=== PATIENT | male | born 1965 | race African-American/Black ===

== ENCOUNTER 2024-11-22 15:45 | Outpatient (AMB) | payer MEDICAID, SELFPAY ==
--- NOTE | 2024-11-22 15:52 | MHC.OFFVIS ---
Intake Visit Reasons: elevated PSA/Nocturia Intake Note: Patient is present for ELEVATED PSA/NOCTURIA Urology Medication:NONE Antibiotic Allergy:NONE Blood Thinner:NONE TODAY'S PVR: 0ML'S Training And Documentation Specialist Required: No Allergies No Known Allergies Allergy (Verified 11/22/24 15:53) HPI Comments Details: Bonilla is a pleasant Afro-Erick male (from [place]). He is a patient of . He is seen for the following urologic conditions - elevated PSA Elevated PSA No known family history of prostate issues Reports adequate voiding parameters regarding urge, emptying, strength of stream PSA - 09/29 PSA 8.3 13% free - PCPT 25% Prostate biopsy would be recommended Will complete evaluation with bladder ultrasound and repeat PSA [facility] Medical History (Updated 11/22/24 @ 16:14 by Cecil Downey MD) Abnormal prostate specific antigen (PSA) Urination, excessive at night Hyperthyroidism Elevated PSA Type 2 diabetes mellitus without complications Controlled type 2 diabetes mellitus Review of Systems Const Denies chills and Denies fever(s) Card Reports no additional complaints and Denies syncope Resp Denies cough GI Denies abdominal pain and Denies heartburn Reports as per HPI and Denies change in libido Neuro Denies syncope Psych Denies change in libido Endo Denies change in libido Physical Exam Const General: cooperative, healthy appearing, comfortable and no acute distress Orientation/consciousness: patient oriented x3 HEENT Face and sinus: Yes normal facial exam Mouth: moist mucous membranes Neck Neck: Yes normal visual inspection, Yes full ROM and Yes trachea midline Chest Chest palpation & inspection: normal inspection of the chest Resp Effort & Inspection: normal respiratory effort, able to speak in complete sentences and no respiratory distress GI Inspection: Yes normal to inspection Back/Spine/Pelvis Cervical Spine: normal cervical lordosis Thoracic/Lumbar Spine: thoracic and lumbar spine normal to inspection Skin General skin exam: no rashes or lesions noted Neuro General: patient oriented x3, gait normal, tone normal and moves all extremities Extrem General: Yes normal to inspection and Yes capillary refill normal Office Procedures Post Void Residual Post Residual Void Post Void Residual (PVR): 0 07450-[id number] Void Residual by ultrasound Results AMB Urinalysis, Automated UA Leukoctes 0 Teto/uL Last Edit by SUSAN Marx on 11/22/24 16:01 UA Nitrite Negative Last Edit by SUSAN Marx on 11/22/24 16:01 UA Urobilinogen 0.2 mg/dL Last Edit by SUSAN Marx on 11/22/24 16:01 UA Protein 15 mg/dL Last Edit by SUSAN Marx on 11/22/24 16:01 UA pH 6.0 Last Edit by SUSAN Marx on 11/22/24 16:01 UA Blood 25 Rakesh/uL Last Edit by SUSAN Marx on 11/22/24 16:01 UA Specific [place] 1.025 Last Edit by SUSAN Marx on 11/22/24 16:01 UA Ketone Positive Last Edit by SUSAN Marx on 11/22/24 16:01 UA Bilirubin 0 mg/dL Last Edit by SUSAN Marx on 11/22/24 16:01 UA Glucose 0 mg/dL Last Edit by SUSAN Marx on 11/22/24 16:01 Results Reviewed Results Reviewed: Laboratory Last Values Urine pH (Auto) 6.0 11/22/24 16:00 Specific [place] (Auto) 1.025 11/22/24 16:00 Urine Protein (Auto) 15 mg/dL 11/22/24 16:00 Glucose (UA)(Auto) 0 mg/dL 11/22/24 16:00 Urine Ketones (Auto) Positive 11/22/24 16:00 Urine Blood (Auto) 25 Rakesh/uL 11/22/24 16:00 Urine Nitrite (Auto) Negative 11/22/24 16:00 Urine Bilirubin (Auto) 0 mg/dL 11/22/24 16:00 Urine Urobilinogen (Auto) 0.2 mg/dL 11/22/24 16:00 Leukocyte Esterase (Auto) 0 Teto/uL 11/22/24 16:00 Assessment & Plan Assessment & Plan (1) Elevated PSA: Code(s): R97.20 - Elevated prostate specific antigen [PSA] Category: Medical Plan Bladder ultrasound Repeat PSA Orders: Orders AMB Urinalysis Automated Today Z13.9 - Encounter for screening, unspecified PSA,Total (Free>4and<10) Today R97.20 - Elevated prostate specific antigen [PSA] US bladder Today R39.12 - Poor urinary stream, R97.20 - Elevated prostate specific antigen [PSA] Patient Instructions: Imaging studies, laboratory and physical exam results were discussed and reviewed in detail. No major barriers to patient understanding were identified. An opportunity to ask questions regarding the treatment plan was provided. All questions were answered. The patient expressed understanding and agreement with the above treatment plan. The patient is aware they should contact our office by phone for worsening of their current condition or the appearance of new urologic symptoms. Compliance is encouraged with any medications and followup testing that is ordered. It is a privilege to participate in the urologic care of your patient. If you have any questions or concerns regarding treatment for the above conditions, or other urologic issues, please do not hesitate to contact me. The office telephone contact is [phone]. This note is constructed using voice recognition software. While every effort has been made to ensure accuracy transcription manager errors may have been included. Yours sincerely, Dr Cecil Downey MD, [facility] - Urology Providers of Expert, Compassionate Care for the Genitourinary System Coding Level of Care Code New Pt Level 4 (14695) Diagnoses Elevated PSA R97.20 CPT Codes Post Residual Void - PVR CPT Code: 51187-Gtrr Void Residual by ultrasound ([id number])
== END 2024-11-22 16:19 | disposition home or self-care (01) ==
PROVIDERS: PCP Physician Assistant Medical; Visit Provider Urology
DX: Z13.9 Encounter for screening, unspecified (principal); R97.20 Elevated prostate specific antigen [PSA]
CPT/HCPCS: 99204

== ENCOUNTER → 2024-11-22 15:45 | Outpatient (BNVA) | payer MEDICAID, SELFPAY | PROVIDERS: PCP Physician Assistant Medical; Visit Provider Urology | DX: R97.20 Elevated prostate specific antigen [PSA] (principal) | CPT/HCPCS: 51798; 81003; 99202 ==

== ENCOUNTER 2024-12-30 08:45 | Outpatient (REF) | payer MEDICAID, SELFPAY ==
--- OUTSIDE RECORDS SUMMARY | 2024-12-30 09:15 | XMS_ITS | Clinical Summary ---
Author Organization [facility] Address [address] [place] [address] Care Team Providers Care Litigation Secretary Name Role Phone Mateo Hartmann PA-C Primary Care Provider + [phone] Source Comments PLEASE NOTE, if this patient is a minor, it may be UNLAWFUL to discuss sensitive information that is contained in these records (such as FAMILY PLANNING, MENTAL HEALTH or SUBSTANCE ABUSE) with the minor patient's parent or other person without the patient's specific authorization.[facility] Allergies No known active allergies Medications loratadine (CLARITIN) 10 mg tabletIndicati ons:Seasonal allergies Take 1 Tab by mouth once daily as needed for allergies 30 Tab 2 0 Active fluticasone propionate (FLONASE) 50 mcg/actuation nasal sprayIndicatio ns:Seasonal allergies USE 2 SPRAYS IN EACH NOSTRIL TWICE A DAY 16 mL 1 0 Active blood-glucose meter monitoring kitIndications :New onset type 2 diabetes mellitus (HCC-CMS) as needed for blood glucose monitoring Freestyle meter, use to check BG daily 1 Each 2 Active metFORMIN (GLUCOPHAGE) 500 mg tabletIndicati ons:New onset type 2 diabetes mellitus (HCC-CMS) take 1 tablet by mouth twice daily with meals. 180 Tablet 1 4 Active atorvastatin (LIPITOR) 20 mg tabletIndicati ons:New onset type 2 diabetes mellitus (HCC-CMS) Take 1 Tablet by mouth once daily 90 Tablet 1 4 Active alcohol swabsIndicatio ns:New onset type 2 diabetes mellitus (HCC-CMS) Use to check blood sugar 100 Each 3 4 Active blood sugar diagnostic (FREESTYLE LITE STRIPS) stripsIndicati ons:New onset type 2 diabetes mellitus (HCC-CMS) Use to check blood sugar once daily 100 Each 3 4 Active lancets (FREESTYLE LANCETS) 28 gaugeIndicatio ns:New onset type 2 diabetes mellitus (HCC-CMS) Use to check blood sugar once daily 100 Each 3 4 Active dulaglutide (TRULICITY) 0.75 mg/0.5 mL pen injectorIndica tions:New onset type 2 diabetes mellitus (HCC-CMS) INJECT 0.75 MG SUBCUTANEOUSLY ONE TIME PER WEEK 2 mL 2 5 Active Active Problems Problem Noted Date Diagnosed Date New onset type 2 diabetes mellitus (HCC-CMS) Hyperthyroidism 02/02/2023 Seasonal allergies 11/19/2019 Screen for colon cancer 06/15/2017 Overview (08/03/2017): [facility] , 04/20/17: Internal and external hemorrhoids Colon otherwise normal to the terminal ileum Murmur, cardiac 06/08/2017 Chronic left shoulder pain 06/08/2017 Anemia 07/13/2016 Pain in limb 06/29/2015 Overview (06/29/2015): Rt hand, shoulder girdle vague pain after strenuous work. Relieved with prn Alleve. Prediabetes 06/11/2015 Overview (06/11/2015): A1c= 6.2(06/11/2015) Abnormal TSH 06/11/2015 Hemorrhoids 05/28/2015 Overview (04/28/2017): [facility] 03/28/27- Scheduled a colonoscopy. Must take liquid diet the day before procedure. Chronic constipation 05/28/2015 Encounters Date Type Department Care Team Description 11/19/2024 9:20 AM EST Office Visit [facility] [place] [address] Darya Pacheco RN Controlled type 2 diabetes mellitus without complication, without long-term current use of insulin ([facility]) (Primary Dx) 11/19/2024 Travel 10/14/2024 11:00 AM EST Office Visit [address] [address] Darya Pacheco RN Diabetic feet ([facility]) (Primary Dx) 10/14/2024 Travel 10/08/2024 Travel from Last 3 Months Immunizations Name Administration Dates Next Due INFLUENZA, SEASONAL, INJECTABLE 06/29/2015 Influenza (FLUBLOK),recombinant,injectable,preservati ve Free 07/23/2024 PFIZER COVID VACCINE, PURPLE CAP, 12+ 01/26/2022 ,04/07/2021,03/15/2021 PNEUMOCOCCAL CONJUGATE PCV 20 (Prevnar) 04/18/20 24 PNEUMOCOCCAL POLYSACCHARIDE PPV23 11/03/2022 Pfizer-BioNTCake Health COVID-19 Vac cine Bivalent, (FREEMAN PFIZER-BIONTECH COVID-19 VACCINE BIVALENT, (FREEMAN CAP 08/04/2022 TDAP 11/30/2018,05/05/2016 ZOSTER VACCINE, RECOMBINANT (SHINGRIX) ,05/05/2022 Family History Relation Name Status Comments Father Alive Mother Alive Social History Tobacco Use Types Packs/Day Years Used Date Smoking Tobacco: Never Smokeless Tobacco: Never Tobacco Cessation:Counseling Given: No Alcohol Use Standard Drinks/Week Comments Yes 0 (1 standard drink = 0.6 oz pur e alcohol) sometimes, occasion Social Connections Answer Date Recorded Connectedness 0 01/02/2023 Financial Resource Strain Answer Date R ecorded Financial Resource Strain 0 2022 Stress Answer Date Recorded Stress 0 01/02/2023 Physical Activity Answer Date Recorded Physical Activity 0 06/30/2019 Food Insecurity Answer Date Recorded Food 0 01/02/2023 Transportation Needs Answer Date Record ed Transportation 0 01/02/2023 Housing Stability Answer Date Recorded Housing 0 01/02/2023 Safety and Environment Answer Date Edward rded Safety 0 01/02/2023 Utilities Answer Date Recorded Utilities 0 01/02/2023 Employment Answer Date Recorded Stress 0 01/26/2022 Sex and Gender Information Value Date Recorded Sex Assigned at Male 04/17/2018 6:00 AM PDT Legal Sex Male 7:08 AM PDT Gender Identity Male 04/17/2018 6:00 AM PDT Sexual Orientation Straight 04/17/2018 6: 00 AM PDT Occupation Industry Job Start Date Job End Date 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 Not on file Not on file Not on file Last Filed Vital Signs Vital Sign Reading Time Taken Comments Blood Pressure 130/82 11/19/2024 9:40 AM EST Pulse 72 11/19/2024 9:40 AM EST Temperature 36.1 ??C (97 ??F) 07/23/2024 2:17 PM EDT Respiratory Rate 16 07/23/2024 2:17 PM EDT Oxygen Saturation 96% 07/23/2024 2:17 PM EDT Inhaled Oxygen Concentration - - Weight 83.5 kg (184 lb) 11/19/2024 9:40 AM EST Height 170.2 cm (5' 7 ) 07/23/2024 2:17 PM EDT Body Mass Index 28.82 07/23/2024 2:17 PM EDT Plan of Treatment Upcoming Encounters Date Type Department Care Team (Late st Contact Info) Description 01/07/2025 9:00 AM EST Office Visit [facility] [address] [place] [phone] Mateo Hartmann PA-C [address] [facility] [place] [address] 02/18/2025 9:20 AM EDT Office Visit [facility] [address] [place] [phone] Darya Pacheco RN [phone] [place] [address] Health Maintenance Due Date Last Done Comments Dental Examination 1965 Retinopathy Screening 01/07/1977 CT Colonography 01/07/2009 Colonoscopy 01/07/2009 Fecal DNA 01/07/2009 Flexible Sigmoidoscopy 01/07/2009 [id number] ( season) 2024 08/04/2022, 01/26/2022, 04/07/2021, Additional history exists Alcohol and Drug Screen 11/06/2024 04/18/20, 01/02/2023, 11/03/2022, Additional history exists Depression Annual Screen 11/06/2024 04/18/2024 Diabetes HbA1c 02/11/2025 08/13/2024, 04/06, 02/03/2023, Additional history exists Tobacco Screening 04/18/2025 04/18/2024 Diabetes Microalbumin (w/Creatinine) 04/22/2025 04/22/2024, 02/03/2023 Annual Preventive Care Visit 07/23/2025 07/23/2024, 02/02/2023, 01/26/2022, Additional history exists Lipid Screening 08/13/2025 08/13/2024, 04/06, 02/03/2023, Additional history exists Serum Creatinine 08/13/2025 08/13/2024, , 02/03/2023, Additional history exists Diabetes Foot Exam 10/14/2025 10/14/2024 Hypertension Screening (#1) 11/19/2025 Colorectal Cancer Screening 04/20/2027 FIT/gFOBT 04/20/2027 04/20/2017 (Karin casarez by Outside Provider), 11/02/2016 Imm-DTaP/Tdap/Td (3 - Td or Tdap) 11/30/2028 11/30/2018, 05/05/2016 HIV Screening Completed 11/30/2018 Hepatitis C Screening Completed 11/30/2018 Imm-Zoster, Recombinant Completed 08/04/2022, 05/05 Imm-Pneumococcal Completed 04/18/2024, 11/03/2022 Imm-Influenza Discontinued 07/23/2024, 06/29/2015 Imm-Hepatitis B Aged Out No longer el igible based on patient's age to complete this topic Procedures Procedure Name Priority Date/Time Associated Diagnosis Comments REFERRAL TO UROLOGY Routine 11/22/2024 3 :00 AM EST Nocturia Abnormal prostate specific antigen (PSA) COMPREHENSIVE METABOLIC PANEL Routine 08/13/2024 11:46 AM EDT New onset type 2 diabetes mellitus (HCC-CMS) LIPID PANEL Routine 08/13/2024 11:46 AM EDT New onset type 2 diabetes mellitus (HCC-CMS) HEMOGLOBIN GLYCOSYLATED A1C Routine 08/13/2024 11:46 AM EDT New onset type 2 diabetes mellitus (HCC-CMS) MICROALBUMIN/CREATININ E RATIO, URINE, RANDOM Routine 04/22/2024 8:38 AM EDT New onset type 2 diabetes mellitus (HCC-CMS) ANTIBODY HIV-1&HIV-2 SINGLE RESULT Routine 11/30/2018 9:30 AM EST Health care maintenance HEPATITIS C ANTIBODY Routine 11/30/2018 9:30 AM EST Health care maintenance OCCULT BLOOD, STOOL (DIAGNOSTIC) Routine 11/02/2016 11:32 AM EST Screening for colon cancer from Last 3 Months or Most Recently Relevant to Health Maintenance Results * REFERRAL TO UROLOGY (11/22/2024 3:00 AM EST) 11/22/2024 3:00 AM EST Mateo Hartmann PA-C REFERRAL Final Result * (ABNORMAL) HEMOGLOBIN GLYCOSYLATED A1C (08/13/2024 11:46 AM EDT) HEMOGLOBIN A1C 6.5(H) <5.7 % of total Hgb [facility] Comment: For someone without known diabetes, a hemoglobin A1c value of 6.5% or greater indicates that they may have diabetes and this should be confirmed with a follow-up test. For someone with known diabetes, a value <7% indicates that their diabetes is well controlled and a value greater than or equal to 7% indicates suboptimal control. A1c targets should be individualized based on duration of diabetes, age, comorbid conditions, and other considerations. Currently, no consensus exists regarding use of hemoglobin A1c for diagnosis of diabetes for children. ?? Blood Blood / Unknown 08/13/2024 1 1:46 AM EDT 08/13/2024 11:47 AM EDT Narrative [facility] - 08/15/2024 11:47 AM EDT FASTING:NO us Mateo Hartmann PA-C LAB - BLOOD DRAW Edited Resu lt - Final Performing Organization Address City/[facility]/ZIP Co de Phone Number [facility] [address] [address], [facility] [address] [address] * LIPID PANEL (08/13/2024 11:46 AM EDT) [facility] Signature CHOLESTEROL, TOTAL 171 <200 mg/dL [facility] HDL CHOLESTEROL 68 > OR = 40 mg/dL [facility] TRIGLYCERIDES 133 <150 mg/dL [facility] LDL-CHOLESTEROL 80 99 mg/dL (calc) [facility] Comment: Reference range: <100 Desirable range <100 mg/dL for primary prevention; ?? <70 mg/dL for patients with CHD or diabetic patients with > or = 2 CHD risk factors. LDL-C is now calculated using the Paty calculation, which is a validated novel method providing better accuracy than the Friedewald equation in the estimation of LDL-C. Chris ALVAREZ et al. DONELL. 2013;310(19): 7139-3972 (http://education.Nutraspace/faq/FLP931) CHOL/HDLC RATIO 2.5 <5.0 (calc) [facility] NON-HDL CHOLESTEROL 103 <130 mg/dL (calc) [facility] Comment: For patients with diabetes plus 1 major ASCVD risk factor, treating to a non-HDL-C goal of <100 mg/dL (LDL-C of <70 mg/dL) is considered a therapeutic option. Blood Blood / Unknown 08/13/2024 1 1:46 AM EDT 08/13/2024 11:47 AM EDT Narrative [facility] - 08/15/2024 11:47 AM EDT FASTING:NO us Mateo Hartmann PA-C LAB - BLOOD DRAW Final Resul t Performing Organization Address [facility]/ZIP Co de Phone Number [facility] [address] [address], [facility] [address] [address] * (ABNORMAL) COMPREHENSIVE METABOLIC PANEL (08/13/2024 11:46 AM EDT) GLUCOSE 103 65 - 139 mg/dL [facility] Comment: ?Non-fasting reference interval UREA NITROGEN (BUN) 23 7 - 25 mg/dL [facility] CREATININE (blood) 1.06 0.70 - 1.35 mg/dL [facility] EGFR 80 > OR = 60 mL/min/1. 73m2 [facility] BUN/CREATININE RATIO SEE NOTE: [facility] Comment: ?? Not Reported: BUN and Creatinine are within ?? reference range. ? SODIUM 139 135 - 146 mmol/L [facility] POTASSIUM 5.4(H) 3.5 - 5.3 mmol/L [facility] CHLORIDE 101 98 - 110 mmol/L [facility] CARBON DIOXIDE 32 20 - 32 mmol/L [facility] CALCIUM 10.6(H) 8.6 - 10.3 mg/dL [facility] PROTEIN, TOTAL 7.6 6.1 - 8.1 g/dL [facility] ALBUMIN 4.8 3.6 - 5.1 g/dL [facility] GLOBULIN 2.8 1.9 - 3.7 g/dL (calc) [facility] ALBUMIN/GLOBULI N RATIO 1.7 1.0 - 2.5 (calc) [facility] BILIRUBIN, TOTAL 0.5 0.2 - 1.2 mg/dL [facility] ALKALINE PHOSPHATASE 74 35 - 144 U/L [facility] AST 21 10 - 35 U/L [facility] ALT 24 9 - 46 U/L [facility] Blood Blood / Unknown 08/13/2024 1 1:46 AM EDT 08/13/2024 11:47 AM EDT Narrative [facility] - 08/15/2024 11:47 AM EDT FASTING:NO Mateo Hartmann PA-C LAB - BLOOD DRAW Edited Resu lt - Final [facility] [address] [address], [facility] [address] [place] [address] * MICROALBUMIN/CREATININE RATIO, URINE, RANDOM (04/22/2024 8:38 AM EDT) CREATININE, RANDOM URINE 111 20 - 320 mg/dL [facility] MICROALBUMIN 2.0 mg/dL [employer] [facility] Comment: Reference Range Not established MICROALBUMIN/CREA TININE RATIO, RANDOM URINE 18 <30 mg/g creat [facility] Comment: The ADA defines abnormalities in albumin excretion as follows: Albuminuria Category ?Result (mg/g creatinine) Normal to Mildly increased ?? <30 Moderately increased ? 30-299 Severely increased ? > OR = 300 The ADA recommends that at least two of three specimens collected within a 3-6 month period be abnormal before considering a patient to be within a diagnostic category. Urine Urine specimen / Unknown 04/22/2024 8:38 AM EDT 04/22/2024 8:38 AM EDT Narrative [facility] - 04/23/2024 5:24 PM EDT FASTING:YES Mateo Hartmann PA-C LAB - NO BLOOD DRAW Final Re sult [facility] [address] [address], [facility] [address] [address] * HEPATITIS C ANTIBODY (11/30/2018 9:30 AM EST) Pathologist [facility] HEPATITIS C VIRUS SCREEN NEGATIVE NEGATIVE [facility] Blood specimen (specimen) Blood / Unknown 11/30/2018 9:30 AM EST 11/30/2018 10:26 AM EST [facility] - 11/30/2018 12:46 PM EST [employer], a member of [address] [address] Machine Lead Burner - Jennifer Ji MD PT ID [id number] ORD# [id number] Tom Camacho MD LAB - BLOOD DRAW Final Result Performing Organization Address [facility] de Phone Number [address] [address], * HIV-1 & HIV-2 ANTIBODIES (11/30/2018 9:30 AM EST) HIV 1 AND 2 ANTIBODY SCREEN NEGATIVE NEGATIVE [facility] Comment: This assay is a 4th generation assay allowing for earlier detection of HIV infection by detecting the presence of the HIV-1 p24 antigen as well as the traditional antibodies to HIV type 1 (including group O) and type 2. ??Use of a 4th generation assay is the current CDC recommendation for HIV screening. Blood specimen (specimen) Blood / Unknown 11/30/2018 9:30 AM EST 11/30/2018 10:[address] [facility] - 11/30/2018 12:47 PM EST [employer], [place] [address] Machine Lead Burner - Jennifer Ji MD PT ID [id number] ORD# [id number] Tom Camacho MD LAB - BLOOD DRAW Final Result Performing Organization Address [facility] de Phone Number [address] [address], * OCCULT BLOOD, STOOL (DIAGNOSTIC) (11/02/2016 11:32 AM EST) STOOL OCCULT, DIAGNOSTIC RESULT NEGATIVE [facility] Stool specimen (specimen) Stool specimen / Unknown 11/02/2016 11:32 AM EST 11/02/2016 12:24 PM EST [facility] - 11/02/2016 2:45 PM EST [employer] [address] [place] [address] PT ID [id number] ORD# [id number] SOURCE: STOOL; Evan Alan MD LAB - NO BLOOD DRAW Final Re sult Performing Organization Address [facility]/State/ZIP Co de Phone Number [facility] [address] [place] [address], from Last 3 Months or Most Recently Relevant to Health Maintenance Insurance [employer] [id number] [place] [address] [facility] Care Teams Litigation Secretary Relationship Specialty Start Date End Date Mateo Hartmann PA-C [address] [place] [address] PCP - General FAMILY MEDICINEMICHAEL 01/25/22
[2024-12-30 10:27] LABS: PSA,Total (Free>4and<10) 7.62 ng/mL (0.00-4.00)
[2025-01-01 17:59] LABS: Free Prostate Spec Ag 1.6 ng/mL; Percent Free Prostate Spec Ag 21 % (calc) (>25); Prostate Specific Ag Total 7.5 ng/mL (< OR = 4.0)
== END 2024-12-30 08:46 | disposition home or self-care (01) ==
LOC: HO.LAB 08:45
PROVIDERS: Visit Provider Urology
DX: R97.20 Elevated prostate specific antigen [PSA] (principal); Z12.5 Encounter for screening for malignant neoplasm of prostate
CPT/HCPCS: 36415; 84153; 84154

== ENCOUNTER 2025-01-03 15:47 | Outpatient (REF) | payer MEDICAID, SELFPAY ==
--- OUTSIDE RECORDS SUMMARY | 2025-01-03 17:48 | XMS_ITS | Clinical Summary ---
Author Organization [facility] Address [address] [place] [address] Care Team Providers Care Engine Oiler Name Role Phone Mateo Hartmann PA-C Primary Care Provider + [phone] Source Comments PLEASE NOTE, if this patient [...] Screen for colon cancer 06/15/2017 Overview (08/03/2017): [facility] , 04/20/17: Internal and external hemorrhoids [...] 11/19/2024 9:20 AM EST Office Visit [facility] [address] Darya Pacheco RN Controlled type 2 diabetes mellitus without complication, without long-term current use of insulin ([facility]) (Primary Dx) 11/19/2024 Travel 10/14/2024 11:00 AM EST Office Visit [address] [phone] Darya Pacheco RN Diabetic feet ([facility]) (Primary Dx) 10/14/2024 Travel 10/08/2024 Travel from Last 3 Months Immunizations Name Administration Dates Next Due INFLUENZA, SEASONAL, INJECTABLE 06/29/2015 Influenza (FLUBLOK),recombinant,injectable,preservati ve Free 07/23/2024 PFIZER COVID VACCINE, PURPLE CAP, 12+ 01/26/2022 ,04/07/2021,03/15/2021 PNEUMOCOCCAL CONJUGATE PCV 20 (Prevnar) 04/18/20 24 PNEUMOCOCCAL POLYSACCHARIDE PPV23 11/03/2022 Pfizer-BioNTMetrekare COVID-19 Vac cine Bivalent, (FREEMAN PFIZER-BIONTECH COVID-19 [...] 0 01/02/2023 Safety and Environment Answer Date Edwrad rded Safety 0 01/02/2023 Utilities Answer Date [...] is wise and also wor ks at [employer] at nights. Not on file Not on [...] Description 01/07/2025 9:00 AM EST Office Visit [address] [phone] Mateo Hartmann PA-C [address] [place] [address] 01/28/2025 2:00 PM EDT Office Visit [address] [phone] Mateo Hartmann PA-C [address] [facility] [place] [address] 02/18/2025 9:20 AM EDT Office Visit [facility] [address] [place] [phone] Darya Pacheco RN [address] [place] [address] Health Maintenance Due Date Last Done Comments Dental Examination 1965 Retinopathy Screening 01/07/1977 CT Colonography 01/07/2009 Colonoscopy 01/07/2009 Fecal DNA 01/07/2009 Flexible Sigmoidoscopy 01/07/2009 [id number] ( season) 2024 08/04/2022, 01/26/2022, 04/07/2021, Additional history exists Alcohol and Drug Screen 11/06/2024 04/18/20 24, 01/02/2023, 11/03/2022, Additional history exists Depression Annual [...] Diagnosis Comments REFERRAL TO UROLOGY Routine 11/22/2024 3:00 AM EST Nocturia Abnormal prostate specific antigen [...] A1C 6.5(H) <5.7 % of total Hgb [facility] Comment: For someone without known diabetes, a [...] AM EDT 08/13/2024 11:47 AM EDT Narrative [employer] [facility] - 08/15/2024 11:47 AM EDT FASTING:NO Mateo Hartmann PA-C LAB - BLOOD DRAW Edited Resu lt - Final [employer] [facility] [address] [address], [employer] [facility] [address] [place] [address] * LIPID PANEL (08/13/2024 11:46 AM EDT) CHOLESTEROL, TOTAL 171 <200 mg/dL [employer] [facility] HDL CHOLESTEROL 68 > OR = 40 mg/dL [facility] TRIGLYCERIDES 133 <150 mg/dL [employer] [facility] LDL-CHOLESTEROL 80 99 mg/dL (calc) [employer] [facility] Comment: Reference range: <100 Desirable range <100 mg/dL for primary prevention; ?? <70 mg/dL for patients with CHD or diabetic patients with > or = 2 CHD risk factors. LDL-C is now calculated using the Chris-Rosanne calculation, which is a validated novel method providing better accuracy than the Friedewald equation in the estimation of LDL-C. Chris ALVAREZ et al. DONELL. 2013;310(19): 9727-7741 (http://education.[employer].Blinkit/faq/AVH480) CHOL/HDLC RATIO 2.5 <5.0 (calc) [employer] [facility] NON-HDL CHOLESTEROL 103 <130 mg/dL (calc) [facility] Comment: For patients with diabetes plus 1 major ASCVD risk factor, treating to a non-HDL-C goal of <100 mg/dL (LDL-C of <70 mg/dL) is considered a therapeutic option. Blood Blood / Unknown 08/13/2024 1 1:46 AM EDT 08/13/2024 11:47 AM EDT Narrative [employer] [facility] - 08/15/2024 11:47 AM EDT FASTING:NO Mateo Hartmann PA-C LAB - BLOOD DRAW Final Resul t [employer] [facility] [address] [address], [employer] [facility] [address] [place] [address] * (ABNORMAL) COMPREHENSIVE METABOLIC PANEL (08/13/2024 11:46 AM EDT) Pathologist [facility] GLUCOSE 103 65 - 139 mg/dL [employer] [facility] Comment: ?Non-fasting reference interval UREA NITROGEN (BUN) 23 7 - 25 mg/dL [facility] CREATININE (blood) 1.06 0.70 - 1.35 mg/dL [facility] EGFR 80 > OR = 60 mL/min/1. 73m2 [facility] BUN/CREATININE RATIO SEE NOTE: [facility] Comment: ?? Not Reported: BUN and Creatinine are within ?? reference range. ? SODIUM 139 135 - 146 mmol/L [facility] [facility] POTASSIUM 5.4(H) 3.5 - 5.3 mmol/L [facility] CHLORIDE 101 98 - 110 mmol/L [employer] [facility] CARBON DIOXIDE 32 20 - 32 mmol/L [facility] CALCIUM 10.6(H) 8.6 - 10.3 mg/dL [employer] [facility] PROTEIN, TOTAL 7.6 6.1 - 8.1 g/dL [facility] ALBUMIN 4.8 3.6 - 5.1 g/dL [facility] GLOBULIN 2.8 1.9 - 3.7 g/dL (calc) [facility] [facility] ALBUMIN/GLOBULI N RATIO 1.7 1.0 - 2.5 (calc) [facility] BILIRUBIN, TOTAL 0.5 0.2 - 1.2 mg/dL [facility] [facility] ALKALINE PHOSPHATASE 74 35 - 144 U/L [employer] [facility] AST 21 10 - 35 U/L [facility] ALT 24 9 - 46 U/L [facility] Blood Blood / Unknown 08/13/2024 1 1:46 AM EDT 08/13/2024 11:47 AM EDT Narrative [employer] [facility] - 08/15/2024 11:47 AM EDT FASTING:NO Mateo Hartmann PA-C LAB - BLOOD DRAW Edited Resu lt - Final Performing Organization Address [facility] Co de Phone Number [employer] [place] [employer] [address] [address], [employer] [address] [address] * MICROALBUMIN/CREATININE RATIO, URINE, RANDOM (04/22/2024 8:38 AM EDT) Pathologist [facility] CREATININE, RANDOM URINE 111 20 - 320 mg/dL [facility] MICROALBUMIN 2.0 mg/dL [employer] [facility] Comment: Reference Range Not established MICROALBUMIN/CREA TININE RATIO, RANDOM URINE 18 <30 mg/g creat [employer] [facility] Comment: The ADA defines abnormalities in albumin [...] AM EDT 04/22/2024 8:38 AM EDT Narrative [employer] [facility] - 04/23/2024 5:24 PM EDT FASTING:YES Mateo Hartmann PA-C LAB - NO BLOOD DRAW Final Re sult Performing Organization Address [facility]/ZIP Co de Phone Number [employer] [facility] [address] [address], [employer] [address] [address] * HEPATITIS C ANTIBODY (11/30/2018 9:30 AM EST) Pathologist [facility] HEPATITIS C VIRUS SCREEN NEGATIVE NEGATIVE [facility] Blood specimen (specimen) Blood / Unknown 11/30/2018 9:30 AM EST 11/30/2018 10:26 AM EST [employer] [facility] - 11/30/2018 12:46 PM EST [employer], a member of [address] [address] [employer] - Jennifer Ji MD [place] ID [id number] ORD# [id number] Tom Camacho MD LAB - BLOOD DRAW Final Result Performing Organization Address City/[facility]/[place] [address], * HIV-1 & HIV-2 ANTIBODIES (11/30/2018 9:30 AM EST) HIV 1 AND 2 ANTIBODY SCREEN NEGATIVE NEGATIVE [facility] Comment: This assay is a 4th generation [...] 9:30 AM EST 11/30/2018 10:26 AM EST [employer] [facility] - 11/30/2018 12:47 PM EST [employer], a member of [address] [address] [employer] F[employer] - Jennifer Ji MD PT ID [id number] ORD# [id number] Tom Camacho MD LAB - BLOOD DRAW Final Result Performing Organization Address City/[facility]/ZIP Co de Phone Number [address] [address], [place] [phone] * OCCULT BLOOD, STOOL (DIAGNOSTIC) (11/02/2016 11:32 AM EST) STOOL OCCULT, DIAGNOSTIC RESULT NEGATIVE [facility] Stool specimen (specimen) Stool specimen / Unknown 11/02/2016 11:32 AM EST 11/02/2016 12:24 PM EST [employer] [facility] - 11/02/2016 2:45 PM EST [facility] [address] [place] [address] PT ID [id number] ORD# [id number] SOURCE: STOOL; us Evan Alan MD LAB - NO BLOOD DRAW Final Re sult [employer] [address] [place] [address], from Last 3 Months or Most Recently Relevant to Health Maintenance Insurance [employer] [address] [address] [address] [employer] Care Teams Engine Oiler Relationship Specialty Start Date End Date Mateo Hartmann PA-C [address] [place] [address] PCP - General FAMILY MEDICINE, MICHAEL 01/25/22
== END 2025-01-03 15:48 | disposition home or self-care (01) ==
LOC: HO.US 15:47
PROVIDERS: Visit Provider Urology
DX: Z13.89 Encounter for screening for other disorder (principal)

== ENCOUNTER 2025-01-21 14:40 | Outpatient (REF) | payer MEDICAID, SELFPAY ==
--- NOTE | ~2025-01-21 | US_ITS ---
EXAMINATION: US BLADDER HISTORY: R39.12 - Poor urinary stream COMPARISON: There are no prior studies for comparison. FINDINGS: Sonographic examination of the urinary bladder was performed before and after voiding. Before voiding, the urinary bladder measured 8.5 x 7.7 x 7.8, for an estimated volume of269 mL. After voiding, the urinary bladder measured2.5 x 1.5 x 2.0, for an estimated volume of 4 mL. No intrinsic bladder abnormality is identified. Bilateral ureteral jets are identified. The prostate is enlarged measuring 6.6 x 5.9 x 5.4 cm. US/US bladder IMPRESSION: Enlargement of the prostate. Unremarkable ultrasound examination of the bladder. Post void bladder residual of 4 mL. Electronically signed by: Michael Pagan MD 01/22/2025 07:27 AM EDT
--- OUTSIDE RECORDS SUMMARY | 2025-01-21 17:27 | XMS_ITS | Encounter Summary ---
Author Organization [facility] Address [address] [place] [address] Care Team Providers Care Broommaker Name Role Phone Mateo Hartmann PA-C Primary Care Provider + [phone] Reason for Referral * Endocrinology (Routine) - Pending Review Specialty Diagnoses / Procedures Referred By Yohan chow Referred To Contact Diagnoses Hyperthyroidism Mateo Hartmann PA-C [address] [place] [address] Phone: tel: fax: OTHER Referral ID Status Reason Start Date Expiration Date Visits Requested Visits Authorized [id number] Pending Review Specialty Services Required 01/14/2025 01/14/2026 1 1 Comments TSH 0.22 * Ophthalmology (Routine) - Pending Review Specialty Diagnoses / Procedures Referred By Yohan chow Referred To Contact Diagnoses Controlled type 2 diabetes mellitus without complication, without long-term current use of insulin ([facility]) Mateo Hartmann PA-C [address] [place] [address] Phone: tel: fax: [facility] [address] [place] [address] Phone: tel: fax: Referral ID Status Reason Start Date Expiration Date Visits Requested Visits Authorized [id number] Pending Review Specialty Services Required 01/07/2025 01/07/2026 1 1 Comments Patient was in [place] when he was called last time. Reason for Visit * Reason Comments Follow Up DM follow up . No co ncern Encounter Details Date Type Department Care Team (Late st Contact Info) Description 01/07/2025 9:00 AM EST Office Visit [facility] [address] [place] [address] Mateo Hartmann PA-C [address] [place] [address] Controlled type 2 diabetes mellitus without complication, without long-term current use of insulin ([facility]) (Primary Dx); Hyperthyroidism; New onset type 2 diabetes mellitus (HCC-CMS) Social History Tobacco Use Types Packs/Day Years Used Date Smoking Tobacco: Never Smokeless Tobacco: Never Tobacco Cessation:Counseling Given: No Alcohol Use Standard Drinks/Week Comments Yes 0 (1 standard drink = 0.6 oz pur e alcohol) sometimes, occasion Social Connections Answer Date Recorded Connectedness 1 01/07/2025 Financial Resource Strain Answer Date R ecorded Financial Resource Strain 1 2024 Stress Answer Date Recorded Stress 1 01/07/2025 Physical Activity Answer Date Recorded Physical Activity 0 06/30/2019 Food Insecurity Answer Date Recorded Food 1 01/07/2025 Transportation Needs Answer Date Record ed Transportation 1 01/07/2025 Housing Stability Answer Date Recorded Housing 1 01/07/2025 Safety and Environment Answer Date Edward rded Safety 0 01/02/2023 Utilities Answer Date Recorded Utilities 1 01/07/2025 Employment Answer Date Recorded Stress 0 01/26/2022 Sex and Gender Information Value Date Recorded Sex Assigned at Male 04/17/2018 6:00 AM PDT Legal Sex Male 7:08 AM PDT Gender Identity Male 04/17/2018 6:00 AM PDT Sexual Orientation Straight 04/17/2018 6: 00 AM PDT Occupation Industry Job Start Date Job End Date 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 Not on file Not on file Not on file documented as of this encounter Last Filed Vital Signs Vital Sign Reading Time Taken Comments Blood Pressure 130/86 01/07/2025 9:11 AM EST Pulse 85 01/07/2025 9:11 AM EST Temperature 36.3 ??C (97.4 ??F) 01/07/2025 9:11 AM ES T Respiratory Rate 16 01/07/2025 9:11 AM EST Oxygen Saturation 95% 01/07/2025 9:11 AM EST Inhaled Oxygen Concentration - - Weight 85.4 kg (188 lb 3.2 oz) 01/07/2025 9:11 A M EST Height 170.2 cm (5' 7 ) 01/07/2025 9:11 AM EST Body Mass Index 29.48 01/07/2025 9:11 AM EST documented in this encounter Progress Notes * Mateo Hartmann PA-C - 01/07/2025 9:24 AM EST Subjective: CC: Follow Up (DM follow up . No concern ) HPI: Bonilla Jolly is a 60 year old male patient who presents today for follow up. Exercise in construction. Only on trulicity now, not metformin. Never got script for atorvastatin. Eye exam: was in [place] when he got call Last 3 BP Readings: Date: BP: 01/07/2025 130/86 11/19/2024 130/82 08/13/2024 110/80 Lab Results Component Value Date TRIGLYC 133 08/13/2024 CHOL 171 08/13/2024 HDL 68 08/13/2024 LDL 80 08/13/2024 CHOLHDL 2.5 08/13/2024 NONHDL 103 08/13/2024 Lab Results Component Value Date HGBA1C 6.5 (H) 08/13/2024 HGBA1C 6.8 (H) 04/22/2024 HGBA1C 6.3 (H) 02/03/2023 No Known Allergies Patient Active Problem List Diagnosis Hemorrhoids Chronic constipation Prediabetes Abnormal TSH Pain in limb Anemia Murmur, cardiac Chronic left shoulder pain Screen for colon cancer Seasonal allergies New onset type 2 diabetes mellitus (HCC-CMS) Hyperthyroidism Current Outpatient Medications: atorvastatin (LIPITOR) 20 mg tablet, Take 1 Tablet by mouth once daily, Disp: 90 Tablet, Rfl: 1 blood sugar diagnostic (FREESTYLE LITE STRIPS) strips, Use to check blood sugar once daily, Disp: 100 Each, Rfl: 3 lancets (FREESTYLE LANCETS) 28 gauge, Use to check blood sugar once daily, Disp: 100 Each, Rfl: 3 dulaglutide (TRULICITY) 0.75 mg/0.5 mL pen injector, INJECT 0.75 MG SUBCUTANEOUSLY ONE TIME PER WEEK, Disp: 2 mL, Rfl: 2 alcohol swabs, Use to check blood sugar, Disp: 100 Each, Rfl: 3 blood-glucose meter monitoring kit, as needed for blood glucose monitoring Freestyle meter, use to check BG daily, Disp: 1 Each, Rfl: 0 fluticasone propionate (FLONASE) 50 mcg/actuation nasal spray, USE 2 SPRAYS IN EACH NOSTRIL TWICE ADAY, Disp: 16 mL, Rfl: 1 loratadine (CLARITIN) 10 mg tablet, Take 1 Tab by mouth once daily as needed for allergies, Disp: 30 Tab, Rfl: 2 Review of Systems Remainder ROS: See HPI, systems reviewed and are otherwise negative or noncontributory. Objective: Vitals: 01/07/25 0911 BP: 130/86 Pulse: 85 Resp: 16 Temp: 97.4 ??F (36.3 ??C) TempSrc: Oral SpO2: 95% Weight: 188 lb 3.2 oz (85.4 kg) Height: 5' 7 (1.702 m) Body mass index is 29.48 kg/m??. Physical Exam Constitutional: General: He is not in acute distress. Cardiovascular: Rate and Rhythm: Normal rate and regular rhythm. Pulmonary: Effort: Pulmonary effort is normal. No respiratory distress. Breath sounds: Normal breath sounds. Neurological: Mental Status: He is alert and oriented to person, place, and time. 01/07/2025 9:11 AM Little interest or pleasure in doing things Not at all Feeling down, depressed or hopeless [include irritable if under 18] Not at all Trouble falling or staying asleep, or sleeping too much Not at all Feeling tired or having little energy Not at all Poor appetite or overeating Not at all Feeling bad about yourself - or that you are a failure or have let yourself or your family down Notat all Trouble concentrating on things like school work, reading or watching TV? Not at all Moving or speaking so slowly that other people could have noticed? Or the opposite - being so fidgety or restless that you have been moving around a lot more than usual Not at all Thoughts you would be better off or of hurting yourself in some way Not at all If you checked off any problems, how difficult have these problems made it for you to do your work,take care of things at home, or get along with other people? Not difficult at all PHQ-9 Total Score (Auto Calculated) 0 Depression Severity: None-minimal Assessment and Plan: Bonilla Jolly is a 60 year old male patient who was seen today for follow up. Labs ordered, advised fasting. Advised to call with any questions or concerns. Weight management:BMI follow up plan: The patient was counseled regarding nutrition and physical activity. Counseled for healthy lifestyle, dietary habits, physical activity and regular exercise.Encouraged to make healthier eating choices with less refined carbs and smaller portions along with regular exercise 3-4x/week for at least 20-30min. Avoid fried foods, oily foods and limit foods rich in dense calories. Increase fruits and vegetables. E11.9 Controlled type 2 diabetes mellitus without complication, without long- term current use of insulin ([facility]) (primary encounter diagnosis) Plan : BLOOD COUNT COMPLETE AUTO&AUTO DIFRNTL WBC COMPREHENSIVE METABOLIC PANEL HEMOGLOBIN GLYCOSYLATED A1C LIPID PANEL REFERRAL TO OPHTHALMOLOGY E05.90 Hyperthyroidism Plan : THYROID PANEL WITH TSH E11.9 New onset type 2 diabetes mellitus ([facility]) Plan : ATORVASTATIN 20 MG TABLET - Take 1 Tablet by mouth once daily FREESTYLE LITE STRIPS - Use to check blood sugar once daily LANCETS 28 GAUGE - Use to check blood sugar once daily Return in about 4 months (around 05/09/2025) for f/u DM. documented in this encounter Miscellaneous Notes * Result Encounter Note - Mateo Hartmann PA-C - 01/14/2025 4:57 PM EDT A1C improved from 6.5 to 6.2. Great job! Will continue current regimen and lifestyle changes with healthy diet and exercise. TSH low at 0.22. Patient has hyperthyroidism. Will refer to endocrinology. Potassium mildly elevated again. I don't see any medication that would be causing this, is patient taking supplementation? If so, discontinue. Will monitor for now. Please let pt know, thanks! * Patient Instructions - Mateo Hartmann PA-C - 01/07/2025 9:29 AM EST If you are not able to keep your appointment please call 24-48 hours before your appointment to cancel or reschedule. documented in this encounter Plan of Treatment Upcoming Encounters Date Type Department Care Team (Late st Contact Info) Description 01/28/2025 2:00 PM EDT Office Visit [address] [phone] Mateo Hartmann PA-C [address] [place] [address] 02/18/2025 9:20 AM EDT Office Visit [address] [phone] Darya Pacheco RN [phone] [place] [address] Scheduled Referrals Name Type Priority Associated Diagnoses Orde r Schedule REFERRAL TO OPHTHALMOLOGY Referral Routine Controlled type 2 diabetes mellitus without complication, without long-term current use of insulin ([facility]) Ordered: 01/07/2025 REFERRAL TO ENDOCRINOLOGY Referral Routine Hyperthyroidism Ordered: 01/14/2025 documented as of this encounter Procedures Procedure Name Priority Date/Time Associated Diagnosis Comments THYROID PANEL WITH TSH Routine 9:36 AM EST Hyperthyroidism BLOOD COUNT COMPLETE AUTO&AUTO DIFRNTL WBC Routine 01/07/2025 9:36 AM EST Controlled type 2 diabetes mellitus without complication, without long-term current use of insulin ([facility]) HEMOGLOBIN GLYCOSYLATED A1C Routine 01/07/2025 9:36 AM EST Controlled type 2 diabetes mellitus without complication, without long-term current use of insulin ([facility]) LIPID PANEL Routine 01/07/2025 9:36 AM EST Controlled type 2 diabetes mellitus without complication, without long-term current use of insulin ([facility]) COMPREHENSIVE METABOLIC PANEL Routine 01/07/2025 9:36 AM EST Controlled type 2 diabetes mellitus without complication, without long-term current use of insulin ([facility]) documented in this encounter Results * (ABNORMAL) THYROID PANEL WITH TSH (01/07/2025 9:36 AM EST) TSH 0.22(L) 0.40 - 4.50 mIU/L [facility] T-3 UPTAKE 33 22 - 35 % [facility] T-4 (THYROXINE), TOTAL 6.4 4.9 - 10.5 mcg/dL [facility] FREE T4 INDEX (T7) 2.1 1.4 - 3.8 [facility] [employer] [facility] Blood Blood / Unknown 01/07/2025 9 :36 AM EST 01/07/2025 9:37 AM EST Narrative [employer] [facility] - 2025 9:31 AM EST FASTING:NO Mateo Hartmann PA-C LAB - BLOOD DRAW Final Resul t [facility] [address] [address], [facility] [address] [address] * LIPID PANEL (01/07/2025 9:36 AM EST) Pathologist [facility] CHOLESTEROL, TOTAL 182 <200 mg/dL [facility] HDL CHOLESTEROL 75 > OR = 40 mg/dL [employer] [facility] TRIGLYCERIDES 96 <150 mg/dL [facility] LDL-CHOLESTEROL 88 99 mg/dL (calc) [facility] Comment: Reference range: <100 Desirable range <100 mg/dL for primary prevention; ?? <70 mg/dL for patients with CHD or diabetic patients with > or = 2 CHD risk factors. LDL-C is now calculated using the Chris-Lay calculation, which is a validated novel method providing better accuracy than the Friedewald equation in the estimation of LDL-C. Chris SS et al. DONELL. 2013;310(19): 1291-4792 (http://education.SP3H.[employer]/faq/FYN434) CHOL/HDLC RATIO 2.4 <5.0 (calc) [facility] NON-HDL CHOLESTEROL 107 <130 mg/dL (calc) [facility] Comment: For patients with diabetes plus 1 major ASCVD risk factor, treating to a non-HDL-C goal of <100 mg/dL (LDL-C of <70 mg/dL) is considered a therapeutic option. Blood Blood / Unknown 01/07/2025 9 :36 AM EST 01/07/2025 9:37 AM EST Narrative [employer] [facility] - 2025 9:31 AM EST FASTING:NO us Mateo Hartmann PA-C LAB - BLOOD DRAW Final Resul t [facility] [address] [place] [address], [facility] [address] [place] [phone] * (ABNORMAL) HEMOGLOBIN GLYCOSYLATED A1C (01/07/2025 9:36 AM EST) HEMOGLOBIN A1C 6.2(H) <5.7 % of total Hgb [facility] Comment: For someone without known diabetes, a hemoglobin A1c value between 5.7% and 6.4% is consistent with prediabetes and should be confirmed with a follow-up test. For someone with known diabetes, a value <7% indicates that their diabetes is well controlled. A1c targets should be individualized based on duration of diabetes, age, comorbid conditions, and other considerations. This assay result is consistent with an increased risk of diabetes. Currently, no consensus exists regarding use of hemoglobin A1c for diagnosis of diabetes for children. Blood Blood / Unknown 01/07/2025 9 :36 AM EST 01/07/2025 9:37 AM EST Narrative [facility] - 2025 9:31 AM EST FASTING:NO us Mateo Hartmann PA-C LAB - BLOOD DRAW Edited Resu lt - Final [facility] [address] [address], [facility] [address] [place] [address] * (ABNORMAL) COMPREHENSIVE METABOLIC PANEL (01/07/2025 9:36 AM EST) GLUCOSE 158(H) 65 - 139 mg/dL [facility] Comment: ?Non-fasting reference interval UREA NITROGEN (BUN) 22 7 - 25 mg/dL [facility] CREATININE (blood) 1.08 0.70 - 1.35 mg/dL [facility] EGFR 78 > OR = 60 mL/min/1. 73m2 [facility] BUN/CREATININE RATIO SEE NOTE: [employer] [facility] Comment: ?? Not Reported: BUN and Creatinine are within ?? reference range. ? SODIUM 142 135 - 146 mmol/L [facility] POTASSIUM 5.5(H) 3.5 - 5.3 mmol/L [facility] CHLORIDE 103 98 - 110 mmol/L [facility] CARBON DIOXIDE 28 20 - 32 mmol/L [facility] CALCIUM 10.1 8.6 - 10.3 mg/dL [facility] PROTEIN, TOTAL 7.7 6.1 - 8.1 g/dL [facility] ALBUMIN 4.7 3.6 - 5.1 g/dL [facility] GLOBULIN 3.0 1.9 - 3.7 g/dL (calc) [facility] ALBUMIN/GLOBULI N RATIO 1.6 1.0 - 2.5 (calc) [facility] BILIRUBIN, TOTAL 0.4 0.2 - 1.2 mg/dL [facility] ALKALINE PHOSPHATASE 75 35 - 144 U/L [facility] AST 18 10 - 35 U/L [facility] ALT 23 9 - 46 U/L [facility] Blood Blood / Unknown 01/07/2025 9 :36 AM EST 01/07/2025 9:37 AM EST Narrative [employer] [facility] - 2025 9:31 AM EST FASTING:NO Mateo Hartmann PA-C LAB - BLOOD DRAW Final Resul t [employer] [facility] [address] [address], [employer] [facility] [address] [place] [address] * (ABNORMAL) BLOOD COUNT COMPLETE AUTO&AUTO DIFRNTL WBC (01/07/2025 9:36 AM EST) WHITE BLOOD CELL COUNT 4.0 3.8 - 10.8 Thousand/ uL [facility] RED BLOOD CELL COUNT 5.23 4.20 - 5.80 Million/u L [facility] HEMOGLOBIN 15.8 13.2 - 17.1 g/dL [facility] HEMATOCRIT 49.0 38.5 - 50.0 % [facility] MCV 93.7 80.0 - 100.0 fL [facility] MCH 30.2 27.0 - 33.0 pg [facility] MCHC 32.2 32.0 - 36.0 g/dL [facility] Comment: For adults, a slight decrease in the calculated MCHC value (in the range of 30 to 32 g/dL) is most likely not clinically significant; however, it should be interpreted with caution in correlation with other red cell parameters and the patient's clinical condition. RDW 13.5 11.0 - 15.0 % [facility] PLATELET COUNT 347 140 - 400 Thousand/ uL [facility] MPV 8.9 7.5 - 12.5 fL [facility] ABSOLUTE NEUTROPHILS 1,376(L) 1,500 - 7,800 cells/uL [facility] ABSOLUTE LYMPHOCYTES 1,956 850 - 3,900 cells/uL [facility] ABSOLUTE MONOCYTES 364 200 - 950 cells/uL [facility] ABSOLUTE EOSINOPHILS 284 15 - 500 cells/uL [facility] ABSOLUTE BASOPHILS 20 0 - 200 cells/uL [facility] NEUTROPHILS PCT 34.4 % [facility] LYMPHOCYTES 48.9 % [facility] MONOCYTES 9.1 % [facility] EOSINOPHILS 7.1 % [facility] BASOPHILS 0.5 % [facility] Blood Blood / Unknown 01/07/2025 9 :36 AM EST 01/07/2025 9:37 AM EST Narrative [facility] - 2025 9:31 AM EST FASTING:NO Mateo Hartmann PA-C LAB - BLOOD DRAW Edited Resu lt - Final [facility] [address] [address], [facility] [address] [place] [address] documented in this encounter Visit Diagnoses Diagnosis Controlled type 2 diabetes mellitus without complication, without long-term current use of insulin (HCC-CMS)- Primary Hyperthyroidism Thyrotoxicosis without mention of goiter or other cause, without mention of thyrotoxic crisis or storm New onset type 2 diabetes mellitus (HCC-CMS) documented in this encounter Additional Health Concerns Assessment Noted Time PHQ-9 Depression Total Score: 0 01/08/20 25 9:11 AM PST documented as of this encounter Care Teams Broommaker Relationship Specialty Start Date End Date Mateo Hartmann PA-C [address] [place] [address] PCP - General [facility]ILY MEDIC[facility] PA 01/25/22 documented as of this encounter
--- OUTSIDE RECORDS SUMMARY | 2025-01-21 17:27 | XMS_ITS | Clinical Summary ---
Author Organization [facility] Address [address] [place] [address] Care Team Providers Care Engineering Operator Name Role Phone Mateo Hartmann PA-C Primary Care Provider [phone] Source Comments PLEASE NOTE, if this patient [...] as needed for allergies 30 Tab 2 11/19/19 20 Active fluticasone propionate (FLONASE) 50 mcg/actuation nasal sprayIndicatio ns:Seasonal allergies USE 2 SPRAYS IN EACH NOSTRIL TWICE A DAY 16 mL 1 01/14/20 20 Active blood-glucose meter monitoring kitIndications :New onset type 2 diabetes mellitus (HCC-CMS) as needed for blood glucose monitoring Freestyle meter, use to check BG daily 1 Each 02/23/20 22 Active alcohol swabsIndicatio ns:New onset type 2 diabetes mellitus (HCC-CMS) Use to check blood sugar 100 Each 3 07/23/20 24 Active dulaglutide (TRULICITY) 0.75 mg/0.5 mL pen injectorIndica tions:New onset type 2 diabetes mellitus (HCC-CMS) INJECT 0.75 MG SUBCUTANEOUSLY ONE TIME PER WEEK 2 mL 2 11/29/19 25 Active atorvastatin (LIPITOR) 20 mg tabletIndicati ons:New onset type 2 diabetes mellitus (HCC-CMS) Take 1 Tablet by mouth once daily 90 Tablet 1 01/08/20 25 Active blood sugar diagnostic (FREESTYLE LITE STRIPS) stripsIndicati ons:New onset type 2 diabetes mellitus (HCC-CMS) Use to check blood sugar once daily 100 Each 3 01/08/20 25 Active lancets (FREESTYLE LANCETS) 28 gaugeIndicatio ns:New onset type 2 diabetes mellitus (HCC-CMS) Use to check blood sugar once daily 100 Each 3 01/08/20 25 Active metFORMIN (GLUCOPHAGE) 500 mg tabletIndicati ons:New onset type 2 diabetes mellitus (HCC-CMS) take 1 tablet by mouth twice daily with meals. 180 Tablet 1 05/23/20 24 025 Discontin ued(Thera py completed /Not needed) atorvastatin (LIPITOR) 20 mg tabletIndicati ons:New onset type 2 diabetes mellitus (HCC-CMS) Take 1 Tablet by mouth once daily 90 Tablet 1 05/23/20 24 025 Discontin ued(Reord er (E-Cancel Not Sent)) blood sugar diagnostic (FREESTYLE LITE STRIPS) stripsIndicati ons:New onset type 2 diabetes mellitus (HCC-CMS) Use to check blood sugar once daily 100 Each 3 07/23/20 24 025 Discontin ued(Reord er (E-Cancel Not Sent)) lancets (FREESTYLE LANCETS) 28 gaugeIndicatio ns:New onset type 2 diabetes mellitus (HCC-CMS) Use to check blood sugar once daily 100 Each 3 07/23/20 24 025 Discontin ued(Reord er (E-Cancel Not Sent)) Active Problems Problem Noted Date Diagnosed Date New onset type 2 diabetes mellitus (HCC-CMS) Hyperthyroidism 02/02/2023 Seasonal allergies 11/19/2019 Screen for colon cancer 06/15/2017 Overview (08/03/2017): [facility] , 04/20/17: Internal and external hemorrhoids [...] Encounters Date Type Department Care Team Description 01/07/2025 9:00 AM EST Office Visit [facility] [address] [place] [phone] Mateo Hartmann PA-C Controlled type 2 diabetes mellitus without complication, without long-term current use of insulin ([facility]) (Primary Dx); Hyperthyroidism; New onset type 2 diabetes mellitus ([facility]) 11/19/2024 9:20 AM EST Office Visit [facility] [address] [place] [phone] Darya Pacheco RN Controlled type 2 diabetes mellitus without complication, without long-term current use of insulin ([facility]) (Primary Dx) 11/19/2024 Travel from Last 3 Months Immunizations Name Administration Dates Next Due INFLUENZA, SEASONAL, INJECTABLE 06/29/2015 Influenza (FLUBLOK),recombinant,injectable,preservati ve Free 07/23/2024 PFIZER COVID VACCINE, PURPLE CAP, 12+ 01/26/2022 ,04/07/2021,03/15/2021 PNEUMOCOCCAL CONJUGATE PCV 20 (Prevnar) 04/18/20 24 PNEUMOCOCCAL POLYSACCHARIDE PPV23 11/03/2022 Pfizer-BioNTech COVID-19 Vac cine Bivalent, (FREEMAN PFIZER-BIONTECH COVID-19 VACCINE BIVALENT, (FREEMAN CAP 08/04/2022 TDAP 11/30/2018,05/05/2016 ZOSTER VACCINE, RECOMBINANT (SHINGRIX) 2,05/05/2022 Family History Relation Name Status Comments Father [...] is wise and also wor ks at [employer] at nights. Not on file Not on [...] Mass Index 29.48 01/07/2025 9:11 AM EST Plan of Treatment Upcoming Encounters Date Type Department Care Team (Late st Contact Info) Description 01/28/2025 2:00 PM EDT Office Visit [facility] [address] [place] [phone] Mateo Hartmann PA-C [address] [place] [address] 02/18/2025 9:20 AM EDT Office Visit [facility] [address] [place] [phone] Darya Pacheco RN [phone] [place] [address] Health Maintenance Due Date Last Done Comments Dental Examination 1965 Retinopathy Screening 01/07/1977 CT Colonography 01/07/2009 Colonoscopy 01/07/2009 Fecal DNA 01/07/2009 Flexible Sigmoidoscopy 01/07/2009 [id number] ( season) 2025 08/04/2022, 01/26/2022, 04/07/2021, Additional history exists Postponed from 07/07/2024 (Patient postponement) Tobacco Screening 04/18/2025 04/18/2024 Diabetes Microalbumin (w/Creatinine) 04/22/2025 04/22/2024, 02/03/2023 Diabetes HbA1c 07/10/2025 01/07/2025, 10/0 06/2024, 04/22/2024, Additional history exists Annual Preventive Care Visit 07/23/2025 07/23/2024, 02/02/2023, 01/26/2022, Additional history exists Diabetes Foot Exam 10/14/2025 10/14/2024 Hypertension Screening (#1) 01/07/2026 Lipid Screening 01/07/2026 01/07/2025, 10/0 06/2024, 04/22/2024, Additional history exists Serum Creatinine 01/07/2026 01/07/2025, 06/2024, 04/22/2024, Additional history exists Colorectal Cancer Screening 04/20/2027 FIT/gFOBT 04/20/2027 04/20/2017 (Karin casarez by Outside Provider), 11/02/2016 Imm-DTaP/Tdap/Td (3 - Td or Tdap) 11/30/2028 11/30/2018, 05/05/2016 HIV Screening Completed 11/30/2018 Hepatitis C Screening Completed 11/30/2018 Imm-Zoster, Recombinant Completed 08/04/2022, 05/05 Imm-Pneumococcal Completed 04/18/2024, 11/03/2022 Imm-Influenza Discontinued 07/23/2024, 06/29/2015 Alcohol and Drug Screen Completed 01/08/20, 04/18/2024, 01/02/2023, Additional history exists Depression Annual Screen Completed 01/07/2025 Procedures Procedure Name Priority Date/Time Associated Diagnosis Comments THYROID PANEL WITH TSH Routine 9:36 AM EST Hyperthyroidism LIPID PANEL Routine 01/07/2025 9:36 AM EST Controlled type 2 diabetes mellitus without complication, without long-term current use of insulin ([facility]) HEMOGLOBIN GLYCOSYLATED A1C Routine 01/07/2025 9:36 AM EST Controlled type 2 diabetes mellitus without complication, without long-term current use of insulin ([facility]) COMPREHENSIVE METABOLIC PANEL Routine 01/07/2025 9:36 AM EST Controlled type 2 diabetes mellitus without complication, without long-term current use of insulin ([facility]) BLOOD COUNT COMPLETE AUTO&AUTO DIFRNTL WBC Routine 01/07/2025 9:36 AM EST Controlled type 2 diabetes mellitus without complication, without long-term current use of insulin ([facility]) REFERRAL TO UROLOGY Routine 11/22/2024 3 :00 AM EST Nocturia Abnormal prostate specific antigen (PSA) MICROALBUMIN/CREATININ E RATIO, URINE, RANDOM Routine 04/22/2024 8:38 AM EDT New onset type 2 diabetes mellitus ([facility]) ANTIBODY HIV-1&HIV-2 SINGLE RESULT Routine 11/30/2018 9:30 AM EST Health care maintenance HEPATITIS C ANTIBODY Routine 11/30/2018 9:30 AM EST Health care maintenance OCCULT BLOOD, STOOL (DIAGNOSTIC) Routine 11/02/2016 11:32 AM EST Screening for colon cancer from Last 3 Months or Most Recently Relevant to Health Maintenance Results * (ABNORMAL) THYROID PANEL WITH TSH (01/07/2025 9:36 AM EST) [facility] TSH 0.22(L) 0.40 - 4.50 mIU/L [facility] T-3 UPTAKE 33 22 - 35 % [facility] T-4 (THYROXINE), TOTAL 6.4 4.9 - 10.5 mcg/dL [facility] FREE T4 INDEX (T7) 2.1 1.4 - 3.8 [facility] [place] [facility] Blood Blood / Unknown 01/07/2025 9 :36 AM EST 01/07/2025 9:37 AM EST Narrative [facility] - 2025 9:31 AM EST FASTING:NO Mateo Hartmann PA-C LAB - BLOOD DRAW Final Resul t [facility] [address] [address], [employer] [address] [place] [address] * (ABNORMAL) BLOOD COUNT COMPLETE AUTO&AUTO DIFRNTL WBC (01/07/2025 9:36 AM EST) [facility] WHITE BLOOD CELL COUNT 4.0 3.8 - 10.8 Thousand/ uL [employer] RED BLOOD CELL COUNT 5.23 4.20 - 5.80 Million/u L [employer] HEMOGLOBIN 15.8 13.2 - 17.1 g/dL [employer] HEMATOCRIT 49.0 38.5 - 50.0 % [employer] MCV 93.7 80.0 - 100.0 fL [employer] MCH 30.2 27.0 - 33.0 pg [employer] MCHC 32.2 32.0 - 36.0 g/dL [employer] Comment: For adults, a slight decrease in the calculated MCHC value (in the range of 30 to 32 g/dL) is most likely not clinically significant; however, it should be interpreted with caution in correlation with other red cell parameters and the patient's clinical condition. RDW 13.5 11.0 - 15.0 % [employer] PLATELET COUNT 347 140 - 400 Thousand/ uL [employer] MPV 8.9 7.5 - 12.5 fL [facility] ABSOLUTE NEUTROPHILS 1,376(L) 1,500 - 7,800 cells/uL [employer] ABSOLUTE LYMPHOCYTES 1,956 850 - 3,900 cells/uL [employer] ABSOLUTE MONOCYTES 364 200 - 950 cells/uL [facility] ABSOLUTE EOSINOPHILS 284 15 - 500 cells/uL [facility] ABSOLUTE BASOPHILS 20 0 - 200 cells/uL [employer] NEUTROPHILS PCT 34.4 % [facility] [employer] LYMPHOCYTES 48.9 % [facility] [employer] MONOCYTES 9.1 % [facility] [employer] EOSINOPHILS 7.1 % [facility] BASOPHILS 0.5 % [employer] Blood Blood / Unknown 01/07/2025 9 :36 AM EST 01/07/2025 9:37 AM EST Narrative [facility] - 2025 9:31 AM EST FASTING:NO Mateo Hartmann PA-C LAB - BLOOD DRAW Edited Resu lt - Final [facility] [address] [place] [address], [employer] [address] [place] [phone] * (ABNORMAL) HEMOGLOBIN GLYCOSYLATED A1C (01/07/2025 9:36 AM EST) HEMOGLOBIN A1C 6.2(H) <5.7 % of total Hgb [facility] [employer] Comment: For someone without known diabetes, a [...] AM EST 01/07/2025 9:37 AM EST Narrative [facility] - 2025 9:31 AM EST FASTING:NO us Mateo Hartmann PA-C LAB - BLOOD DRAW Edited Resu lt - Final Performing Organization Address City/[facility]/ZIP Co de Phone Number [facility] [address] [address], [facility] [address] [address] * LIPID PANEL (01/07/2025 9:36 AM EST) CHOLESTEROL, TOTAL 182 <200 mg/dL [facility] HDL CHOLESTEROL 75 > OR = 40 mg/dL [facility] TRIGLYCERIDES 96 <150 mg/dL [facility] LDL-CHOLESTEROL 88 99 mg/dL (calc) [facility] Comment: Reference range: <100 Desirable range <100 mg/dL for primary prevention; ?? <70 mg/dL for patients with CHD or diabetic patients with > or = 2 CHD risk factors. LDL-C is now calculated using the Paty calculation, which is a validated novel method providing better accuracy than the Friedewald equation in the estimation of LDL-C. Chris ALVAREZ et al. DONELL. 2013;310(19): 6940-6285 (http://education.Olark/faq/GMW678) CHOL/HDLC RATIO 2.4 <5.0 (calc) [facility] NON-HDL CHOLESTEROL 107 <130 mg/dL (calc) [facility] Comment: For patients with diabetes plus 1 major ASCVD risk factor, treating to a non-HDL-C goal of <100 mg/dL (LDL-C of <70 mg/dL) is considered a therapeutic option. Blood Blood / Unknown 01/07/2025 9 :36 AM EST 01/07/2025 9:37 AM EST Narrative [facility] - 2025 9:31 AM EST FASTING:NO us Mateo Hartmann PA-C LAB - BLOOD DRAW Final Resul t Performing Organization Address [facility]/ZIP Co de Phone Number [facility] [address] [address], [facility] [address] [address] * (ABNORMAL) COMPREHENSIVE METABOLIC PANEL (01/07/2025 9:36 AM EST) GLUCOSE 158(H) 65 - 139 mg/dL [facility] Comment: ?Non-fasting reference interval UREA NITROGEN (BUN) 22 7 - 25 mg/dL [facility] CREATININE (blood) 1.08 0.70 - 1.35 mg/dL [facility] EGFR 78 > OR = 60 mL/min/1. 73m2 [facility] BUN/CREATININE RATIO SEE NOTE: [facility] Comment: ?? Not Reported: BUN and Creatinine are within ?? reference range. ? SODIUM 142 135 - 146 mmol/L [facility] POTASSIUM 5.5(H) 3.5 - 5.3 mmol/L [facility] CHLORIDE 103 98 - 110 mmol/L [facility] CARBON DIOXIDE 28 20 - 32 mmol/L [facility] CALCIUM 10.1 8.6 - 10.3 mg/dL [facility] PROTEIN, TOTAL 7.7 6.1 - 8.1 g/dL [facility] ALBUMIN 4.7 3.6 - 5.1 g/dL [facility] GLOBULIN 3.0 1.9 - 3.7 g/dL (calc) [facility] ALBUMIN/GLOBULI N RATIO 1.6 1.0 - 2.5 (calc) [facility] BILIRUBIN, TOTAL 0.4 0.2 - 1.2 mg/dL [facility] ALKALINE PHOSPHATASE 75 35 - 144 U/L [facility] AST 18 10 - 35 U/L [facility] ALT 23 9 - 46 U/L [facility] Blood Blood / Unknown 01/07/2025 9 :36 AM EST 01/07/2025 9:37 AM EST Narrative [facility] - 2025 9:31 AM EST FASTING:NO Mateo Hartmann PA-C LAB - BLOOD DRAW Final Resul t [facility] [address] [address], [facility] [address] [place] [address] * REFERRAL TO UROLOGY (11/22/2024 3:00 AM EST) 11/22/2024 3:00 AM EST us Mateo Hartmann PA-C REFERRAL Final Result * MICROALBUMIN/CREATININE RATIO, URINE, RANDOM (04/22/2024 8:38 AM EDT) Pathologist [facility] CREATININE, RANDOM URINE 111 20 - 320 mg/dL [facility] MICROALBUMIN 2.0 mg/dL [employer] [facility] Comment: Reference Range Not established MICROALBUMIN/CREA TININE RATIO, RANDOM URINE 18 <30 mg/g creat [facility] Comment: The ADA defines abnormalities in albumin [...] AM EDT 04/22/2024 8:38 AM EDT Narrative [employer] MAY - 04/23/2024 5:24 PM EDT FASTING:YES Mateo Hartmann PA-C LAB - NO BLOOD DRAW Final Re sult [facility] [address] [address], [facility] [address] [place] [address] * HEPATITIS C ANTIBODY (11/30/2018 9:30 AM EST) Pathologist [facility] HEPATITIS C VIRUS SCREEN NEGATIVE NEGATIVE [facility] Blood specimen (specimen) Blood / Unknown 11/30/2018 9:30 AM EST 11/30/2018 10:26 AM EST [employer] [facility] - 11/30/2018 12:46 PM EST Marysol Rezdy, a member of [address] [address] Multimedia Engineer - Jennifer Ji MD PT ID [id number] ORD# [id number] Tom Camacho MD LAB - BLOOD DRAW Final Result Performing Organization Address City/[facility]/ZIP Co de Phone Number [address] [address], * HIV-1 & HIV-2 ANTIBODIES (11/30/2018 9:30 AM EST) HIV 1 AND 2 ANTIBODY SCREEN NEGATIVE NEGATIVE [facility] Comment: This assay is a 4th generation [...] 9:30 AM EST 11/30/2018 10:26 AM EST [employer] [facility] - 11/30/2018 12:47 PM LEONARD Marysol Larry, a member of [address] [address] Multimedia Engineer - Jennifer Ji MD PT ID [id number] ORD# [id number] Tom Camacho MD LAB - BLOOD DRAW Final Result Performing Organization Address City/[facility]/ZIP Co de Phone Number [address] [address], [place] [phone] * OCCULT BLOOD, STOOL (DIAGNOSTIC) (11/02/2016 11:32 AM EST) STOOL OCCULT, DIAGNOSTIC RESULT NEGATIVE [facility] Stool specimen (specimen) Stool specimen / Unknown 11/02/2016 11:32 AM EST 11/02/2016 12:24 PM EST Narrative [facility] - 11/02/2016 2:45 PM EST [facility] [address] [place] [address] PT ID [id number] ORD# [id number] SOURCE: STOOL; us Evan Alan MD LAB - NO BLOOD DRAW Final Re sult [facility] [address] [place] [address], from Last 3 Months or Most Recently Relevant to Health Maintenance Insurance [employer] [address] [employer] Care Teams Engineering Operator Relationship Specialty Start Date End Date Mateo Hartmann PA-C [address] [place] [address] PCP - General [facility] [place] 01/25/22
== END 2025-01-21 14:41 | disposition home or self-care (01) ==
LOC: HO.US 14:40
PROVIDERS: PCP Physician Assistant Medical; Visit Provider Urology
DX: R39.12 Poor urinary stream (principal); R97.20 Elevated prostate specific antigen [PSA]
CPT/HCPCS: 76857

== ENCOUNTER → 2025-01-21 14:42 | Outpatient (BNV) | payer MEDICAID, SELFPAY | PROVIDERS: PCP Physician Assistant Medical; Visit Provider Radiology Diagnostic Radiology | DX: N40.0 Benign prostatic hyperplasia without lower urinary tract symptoms (principal) | CPT/HCPCS: 76857 ==

== ENCOUNTER 2025-04-02 08:59 | Outpatient (AMB) | payer MEDICAID, SELFPAY ==
--- NOTE | 2025-04-02 09:14 | A.OFFVIS_ITS ---
Intake Visit Reasons: 6w/PSA Intake Note: Patient is present for 6W/PSA Urology Medication:NONE Antibiotic Allergy:NONE Blood Thinner:NONE Manufacturing Tech Required: No Allergies No Known Allergies Allergy (Verified 04/02/25 09:14) HPI Comments Details: Bonilla is a pleasant Afro-Erick male (from [place]). He is a patient of . He is seen for the following urologic conditions - elevated PSA Telemedicine Evaluation 15 min Consultation [employer] Bladder ultrasound 110 g prostate Based on PSA density high-grade risk of prostate cancer proximally 5% Would manage with finasteride until 69 Lab work six-month Elevated PSA No known family history of prostate issues Reports adequate voiding parameters regarding urge, emptying, strength of stream PSA - 09/29 PSA 8.3 13% free - PCPT 25%, 12/31 7.5 21% Prostate biopsy would be recommended Will complete evaluation with bladder ultrasound and repeat PSA [facility] Medical History (Updated 11/22/24 @ 16:14 by Cecil Downey MD) Abnormal prostate specific antigen (PSA) Urination, excessive at night Hyperthyroidism Elevated PSA Type 2 diabetes mellitus without complications Controlled type 2 diabetes mellitus Review of Systems Const All systems reviewed & are unremarkable except as noted in HPI and below Reports no additional complaints Resp Reports no additional complaints GI Reports no additional complaints Reports as per HPI Musc Reports no additional complaints Physical Exam Telemedicine evaluation Appropriate responses Regular breathing rate and rhythm HEENT Head: Yes normal to inspection Ears: hearing grossly normal bilaterally Eyes General: appearance normal, both eyes and all related structures Neck Neck: Yes normal visual inspection Chest Chest palpation & inspection: normal inspection of the chest Resp Effort & Inspection: normal respiratory effort and able to speak in complete sentences Telehealth Telehealth Location of provider rendering services: practice address Location of patient: address on file Patient Identification confirmed using: Name, : Yes Telehealth method: voice only Patient verbally consented to treatment: Yes Patient verbally consented to billing insurance company: Yes Patient informed of any privacy concerns related to visit: Yes Assessment & Plan Assessment & Plan (1) Elevated PSA: Code(s): R97.20 - Elevated prostate specific antigen [PSA] Category: Medical Plan Follow PSA Start finasteride Check testosterone next visit since on GLP-1s Orders: Orders Testosterone, Total 6 Months R97.20 - Elevated prostate specific antigen [PSA] Prostate Specific Antigen 6 Months R97.20 - Elevated prostate specific antigen [PSA] Medications: New finasteride 5 mg PO DAILY 90 days 90 tabs 1RF N13.8 - Other obstructive and reflux uropathy, N40.1 - Benign prostatic hyperplasia with lower urinary tract symptoms, R33.9 - Retention of urine, unspecified, R97.20 - Elevated prostate specific antigen [PSA] Patient Instructions: This note is constructed using voice recognition software. While every effort has been made to ensure accuracy email production specialist errors may have been included. Imaging studies, laboratory and physical exam results were discussed and reviewed in detail. No major barriers to patient understanding were identified. An opportunity to ask questions regarding the treatment plan was provided. All questions were answered. The patient expressed understanding and agreement with the above treatment plan. The patient is aware they should contact our office by phone for worsening of their current condition or the appearance of new urologic symptoms. Compliance is encouraged with any medications and followup testing that is ordered. It is a privilege to participate in the urologic care of your patient. If you have any questions or concerns regarding treatment for the above conditions, or other urologic issues, please do not hesitate to contact me. The office telephone contact is [phone]. Sincerely, Dr Cecil Downey MD, [facility] [employer] [facility] - Urology Compassionate Specialist Care for the Genitourinary System Coding Level of Care Code Tele Est Pt Level 4 (92165) Complex EM visit Add On G2211 Diagnoses Elevated PSA R97.20
--- OUTSIDE RECORDS SUMMARY | 2025-04-02 09:26 | XMS_ITS | Clinical Summary ---
Author Organization [facility] Address [address] [place] [address] Care Team Providers Care Retail Agent Name Role Phone Mateo Hartmann PA-C Primary Care Provider + [phone] Source Comments PLEASE NOTE, if this patient [...] check BG daily 1 Each 2 Active alcohol swabsIndicatio ns:New onset type 2 diabetes mellitus (HCC-CMS) Use to check blood sugar 100 Each 3 4 Active atorvastatin (LIPITOR) 20 mg tabletIndicati ons:New onset type 2 diabetes mellitus (HCC-CMS) Take 1 Tablet by mouth once daily 90 Tablet 1 5 Active blood sugar diagnostic (FREESTYLE LITE STRIPS) stripsIndicati ons:New onset type 2 diabetes mellitus (HCC-CMS) Use to check blood sugar once daily 100 Each 3 5 Active lancets (FREESTYLE LANCETS) 28 gaugeIndicatio ns:New onset type 2 diabetes mellitus (HCC-CMS) Use to check blood sugar once daily 100 Each 3 5 Active cyclobenzaprin e (FLEXERIL) 10 mg tabletIndicati ons:Neck pain Take 1 Tablet by mouth 2 (two) times daily as needed for muscle spasms 20 Tablet 5 Active dulaglutide (TRULICITY) 0.75 mg/0.5 mL pen injectorIndica tions:New onset type 2 diabetes mellitus (HCC-CMS) Inject 0.75 mg into the skin once a week INJECT 0.75 MG SUBCUTANEOUSLY ONE TIME PER WEEK 6.5 mL 1 5 Active Active Problems Problem Noted Date Diagnosed Date New onset type 2 diabetes mellitus (HCC-CMS) Hyperthyroidism 02/02/2023 Seasonal allergies 11/19/2019 Screen for colon cancer 06/15/2017 Overview (08/03/2017): [facility] , 04/20/17: Internal and external hemorrhoids [...] Encounters Date Type Department Care Team Description 02/18/2025 9:20 AM EDT Office Visit [address] [phone] Darya Pacheco RN Controlled type 2 diabetes mellitus without complication, without long-term current use of insulin ([facility]) (Primary Dx) 01/28/2025 2:00 PM EDT Office Visit [address] [address] Mateo Hartmann PA-C Neck pain (Primary Dx) 01/07/2025 9:00 AM EST Office Visit [address] [address] Mateo Hartmann PA-C Controlled type 2 diabetes mellitus without complication, without long-term current use of insulin (HCC-CMS) (Primary Dx); Hyperthyroidism; New onset type 2 diabetes mellitus ([facility]) from Last 3 Months Immunizations Immunization Administration Dates Next Due INFLUENZA, SEASONAL, INJECTABLE 06/29/2015 Influenza (FLUBLOK),recombinant,injectable,preservati ve Free 07/23/2024 PFIZER COVID VACCINE, PURPLE CAP, 12+ 01/26/2022 ,04/07/2021,03/15/2021 PNEUMOCOCCAL CONJUGATE PCV 20 (Prevnar) 04/18/20 24 PNEUMOCOCCAL POLYSACCHARIDE PPV23 (Pneumovax 23) 11/03/2022 [employer] COVID-19 Vac cine Bivalent, (FREEMAN PFIZER[employer] COVID-19 [...] is wise and also wor ks at [employer] at nights. Not on file Not on file Not on file Last Filed Vital Signs Vital Sign Reading Time Taken Comments Blood Pressure 134/88 02/18/2025 9:38 AM EDT Pulse 68 02/18/2025 9:38 AM EDT Temperature 36 ??C (96.8 ??F) 01/28/2025 1:56 PM EDT Respiratory Rate 16 01/28/2025 1:56 PM EDT Oxygen Saturation 98% 01/28/2025 1:56 PM EDT Inhaled Oxygen Concentration - - Weight 83.1 kg (183 lb 3.2 oz) 02/18/2025 9:38 A M EDT Height 170.2 cm (5' 7 ) 01/28/2025 1:56 PM EDT Body Mass Index 28.69 01/28/2025 1:56 PM EDT Plan of Treatment Health Maintenance Due Date Last Done Comments Dental Examination 1965 Retinopathy Screening 01/07/1977 CT Colonography 01/07/2009 Colonoscopy 01/07/2009 Fecal DNA 01/07/2009 Flexible Sigmoidoscopy 01/07/2009 [id number] () 04/09/2025 08/04/2022, 01/26/2022, 04/07/2021, Additional history exists Postponed from 07/07/2024 (Patient postponement) Tobacco Screening 04/18/2025 04/18/2024 Urine Albumin Creatinine Ratio Screening 04/22/2025 04/22/2024, 02/03/2023 Diabetes HbA1c 07/10/2025 01/07/2025, 10/0 06/2024, 04/22/2024, Additional history exists Annual Wellness (Adult): Indicated (All Coverage) 07/23/2025 07/23/2024, 02/02/2023, 01/26/2022, Additional history exists Diabetes Foot Exam 10/14/2025 10/14/2024 Anxiety Screening 01/07/2026 01/07/2025 Lipid Screening 01/07/2026 01/07/2025, 06/2024, 04/22/2024, Additional history exists Serum Creatinine 01/07/2026 01/07/2025, 06/2024, 04/22/2024, Additional history exists Hypertension Screening (#1) 02/18/2026 Colorectal Cancer Screening 04/20/2027 FIT/gFOBT 04/20/2027 04/20/2017 [...] Procedure Name Priority Date/Time Associated Diagnosis Comments IMAGING SCANNED DOCUMENT 01/21/2025 3:00 AM EDT IMAGING SCANNED DOCUMENT 01/21/2025 3:00 AM EDT THYROID PANEL WITH TSH Routine 9:36 AM EST Hyperthyroidism LIPID PANEL Routine 01/07/2025 9:36 AM EST Controlled type 2 diabetes mellitus without complication, without long-term current use of insulin ([facility]) HEMOGLOBIN GLYCOSYLATED A1C Routine 01/07/2025 9:36 AM EST Controlled type 2 diabetes mellitus without complication, without long-term current use of insulin ([facility]) COMPREHENSIVE METABOLIC PANEL Routine 01/07/2025 9:36 AM EST Controlled type 2 diabetes mellitus without complication, without long-term current use of insulin ([facility]) BLOOD COUNT COMPLETE AUTO&AUTO DIFRNTL WBC Routine 01/07/2025 9:36 AM EST Controlled type 2 diabetes mellitus without complication, without long-term current use of insulin (HCC-CMS) MICROALBUMIN/CREATININ E RATIO, URINE, RANDOM Routine [...] Recently Relevant to Health Maintenance Results * IMAGING SCANNED DOCUMENT (01/21/2025 3:00 AM EDT) Only the most recent of2 resultswithin the time period is included. 01/21/2025 3:00 AM EDT [facility] Hartmann PA-C SCAN IMAGING Final Result * (ABNORMAL) THYROID PANEL WITH TSH (01/07/2025 9:36 AM EST) TSH 0.22(L) 0.40 - 4.50 mIU/L [facility] T-3 UPTAKE 33 22 - 35 % [facility] T-4 (THYROXINE), TOTAL 6.4 4.9 - 10.5 mcg/dL [employer] [facility] FREE T4 INDEX (T7) 2.1 1.4 - 3.8 [facility] Blood Blood / Unknown 01/07/2025 9 :36 AM EST 01/07/2025 9:37 AM EST Narrative [facility] - 2025 9:31 AM EST FASTING:NO Mateo Hartmann PA-C LAB - BLOOD DRAW Final Resul t [facility] [address] [address], [employer] [facility] [address] [place] [address] * (ABNORMAL) BLOOD COUNT COMPLETE AUTO&AUTO DIFRNTL WBC (01/07/2025 9:36 AM EST) Pathologist [facility] WHITE BLOOD CELL COUNT 4.0 3.8 - 10.8 Thousand/ uL [facility] RED BLOOD CELL COUNT 5.23 4.20 - 5.80 Million/u L [facility] HEMOGLOBIN 15.8 13.2 - 17.1 g/dL [facility] HEMATOCRIT 49.0 38.5 - 50.0 % [facility] MCV 93.7 80.0 - 100.0 fL [facility] MCH 30.2 27.0 - 33.0 pg [facility] MCHC 32.2 32.0 - 36.0 g/dL [facility] Comment: For adults, a slight decrease in the calculated MCHC value (in the range of 30 to 32 g/dL) is most likely not clinically significant; however, it should be interpreted with caution in correlation with other red cell parameters and the patient's clinical condition. RDW 13.5 11.0 - 15.0 % [facility] PLATELET COUNT 347 140 - 400 Thousand/ uL [facility] MPV 8.9 7.5 - 12.5 fL [facility] ABSOLUTE NEUTROPHILS 1,376(L) 1,500 - 7,800 cells/uL [facility] ABSOLUTE LYMPHOCYTES 1,956 850 - 3,900 cells/uL [employer] ABSOLUTE MONOCYTES 364 200 - 950 cells/uL [facility] ABSOLUTE EOSINOPHILS 284 15 - 500 cells/uL [facility] ABSOLUTE BASOPHILS 20 0 - 200 cells/uL [facility] NEUTROPHILS PCT 34.4 % [employer] LYMPHOCYTES 48.9 % [facility] MONOCYTES 9.1 % [facility] EOSINOPHILS 7.1 % [facility] BASOPHILS 0.5 % [facility] Blood Blood / Unknown 01/07/2025 9 :36 AM EST 01/07/2025 9:37 AM EST Narrative [facility] - 2025 9:31 AM EST FASTING:NO us Mateo Hartmann PA-C LAB - BLOOD DRAW Edited Resu lt - Final Performing Organization Address [facility] de Phone Number [employer] [facility] [address] [address], [employer] [address] [address] * (ABNORMAL) HEMOGLOBIN GLYCOSYLATED A1C (01/07/2025 9:36 AM EST) HEMOGLOBIN A1C 6.2(H) <5.7 % of total Hgb [employer] [facility] Comment: For someone without known diabetes, a [...] AM EST 01/07/2025 9:37 AM EST Narrative [facility] - 2025 9:31 AM EST FASTING:NO us Mateo Hartmann PA-C LAB - BLOOD DRAW Edited Resu lt - Final Performing Organization Address [facility] Co de Phone Number [employer] [facility] [address] [address], [employer] [address] [address] * LIPID PANEL (01/07/2025 9:36 AM EST) CHOLESTEROL, TOTAL 182 <200 mg/dL [employer] [facility] HDL CHOLESTEROL 75 > OR = 40 mg/dL [employer] [facility] TRIGLYCERIDES 96 <150 mg/dL [employer] [facility] LDL-CHOLESTEROL 88 99 mg/dL (calc) [employer] [facility] Comment: Reference range: <100 Desirable range <100 mg/dL for primary prevention; ?? <70 mg/dL for patients with CHD or diabetic patients with > or = 2 CHD risk factors. LDL-C is now calculated using the Paty calculation, which is a validated novel method providing better accuracy than the Friedewald equation in the estimation of LDL-C. Chris ALVAREZ et al. DONELL. 2013;310(19): 6878-8494 (http://education.Ajubeo/faq/MDW691) CHOL/HDLC RATIO 2.4 <5.0 (calc) [facility] NON-HDL CHOLESTEROL 107 <130 mg/dL (calc) [facility] Comment: For patients with diabetes plus 1 major ASCVD risk factor, treating to a non-HDL-C goal of <100 mg/dL (LDL-C of <70 mg/dL) is considered a therapeutic option. Blood Blood / Unknown 01/07/2025 9 :36 AM EST 01/07/2025 9:37 AM EST Narrative [facility] - 2025 9:31 AM EST FASTING:NO Mateo Hartmann PA-C LAB - BLOOD DRAW Final Resul t [facility] [address] [place] [address], [employer] [address] [place] [phone] * (ABNORMAL) COMPREHENSIVE METABOLIC PANEL (01/07/2025 9:36 AM EST) GLUCOSE 158(H) 65 - 139 mg/dL [facility] Comment: ?Non-fasting reference interval UREA NITROGEN (BUN) 22 7 - 25 mg/dL [facility] CREATININE (blood) 1.08 0.70 - 1.35 mg/dL [facility] EGFR 78 > OR = 60 mL/min/1. 73m2 [facility] BUN/CREATININE RATIO SEE NOTE: [facility] Comment: ?? Not Reported: BUN and Creatinine are within ?? reference range. ? SODIUM 142 135 - 146 mmol/L [facility] POTASSIUM 5.5(H) 3.5 - 5.3 mmol/L [facility] CHLORIDE 103 98 - 110 mmol/L [employer] [facility] CARBON DIOXIDE 28 20 - 32 mmol/L [employer] [facility] CALCIUM 10.1 8.6 - 10.3 mg/dL [employer] [facility] PROTEIN, TOTAL 7.7 6.1 - 8.1 g/dL [employer] [facility] ALBUMIN 4.7 3.6 - 5.1 g/dL [employer] [facility] GLOBULIN 3.0 1.9 - 3.7 g/dL (calc) [employer] [facility] ALBUMIN/GLOBULI N RATIO 1.6 1.0 - 2.5 (calc) [employer] [facility] BILIRUBIN, TOTAL 0.4 0.2 - 1.2 mg/dL [employer] [facility] ALKALINE PHOSPHATASE 75 35 - 144 U/L [employer] [facility] AST 18 10 - 35 U/L [employer] [facility] ALT 23 9 - 46 U/L [employer] [facility] Blood Blood / Unknown 01/07/2025 9 :36 AM EST 01/07/2025 9:37 AM EST Narrative [facility] - 2025 9:31 AM EST FASTING:NO Mateo Hartmann PA-C LAB - BLOOD DRAW Final Resul t [employer] [address] [address], [employer] [facility] [address] [place] [address] * MICROALBUMIN/CREATININE RATIO, URINE, RANDOM (04/22/2024 8:38 AM EDT) CREATININE, RANDOM URINE 111 20 - 320 mg/dL [employer] [facility] MICROALBUMIN 2.0 mg/dL [employer] [facility] Comment: Reference Range Not established MICROALBUMIN/CREA TININE RATIO, RANDOM URINE 18 <30 mg/g creat [employer] [facility] Comment: The ADA defines abnormalities [...] AM EDT 04/22/2024 8:38 AM EDT Narrative [facility] - 04/23/2024 5:24 PM EDT FASTING:YES Mateo Hartmann PA-C LAB URINE AMBULATORY Final R esult Performing Organization Address City/[facility]/ZIP Co de Phone Number [facility] [address] [address], [employer] [facility] [address] [place] [address] * HEPATITIS C ANTIBODY (11/30/2018 9:30 AM EST) Pathologist [facility] HEPATITIS C VIRUS SCREEN NEGATIVE NEGATIVE [facility] Blood specimen (specimen) Blood / Unknown 11/30/2018 9:30 AM EST 11/30/2018 10:26 AM EST Narrative [facility] - 11/30/2018 12:46 PM EST [employer], a member of [address] [address] Casting Machine Adjuster - Jennifer Ji MD PT ID [id number] ORD# [id number] Tom Camacho MD LAB - BLOOD DRAW Final Result Performing Organization Address [facility] Co de Phone Number [address] [address], * HIV future (11/30/2018 9:30 AM EST) Pathologist [facility] HIV 1 AND 2 ANTIBODY SCREEN NEGATIVE NEGATIVE [facility] Comment: This assay is a 4th generation [...] 9:30 AM EST 11/30/2018 10:26 AM EST [employer] [facility] - 11/30/2018 12:47 PM EST [employer], a member of [address] [address] Casting Machine Adjuster - Jennifer Ji MD PT ID [id number] ORD# [id number] Tom Camacho MD LAB - BLOOD DRAW Final Result Performing Organization Address City/[facility]/ZIP Co de Phone Number [address] [address], * OCCULT BLOOD, STOOL (DIAGNOSTIC) (11/02/2016 11:32 AM EST) STOOL OCCULT, DIAGNOSTIC RESULT NEGATIVE [facility] Stool specimen (specimen) Stool specimen / Unknown 11/02/2016 11:32 AM EST 11/02/2016 12:24 PM EST [employer] [facility] - 11/02/2016 2:45 PM EST [employer] [address] [place] [address] PT ID [id number] ORD# [id number] SOURCE: STOOL; Evan Alan MD LAB BODY FLUIDS AND STOOLS A MBULATORY Final Result Performing Organization Address City/[facility]/ZIP Co de Phone Number [address] [address], from Last 3 Months or Most Recently Relevant to Health Maintenance Insurance [employer] [place] [id number] [employer] Care Teams Retail Agent Relationship Specialty Start Date End Date Mateo Hartmann PA-C [address] [place] [address] PCP - General FAMILY MEDICINE PA 01/25/22
== END 2025-04-02 10:20 | disposition home or self-care (01) ==
LOC: HO.HUSH 09:00
PROVIDERS: PCP Physician Assistant Medical; Visit Provider Urology
DX: R97.20 Elevated prostate specific antigen [PSA] (principal)
CPT/HCPCS: 99214

== ENCOUNTER 2025-10-09 08:53 | Outpatient (REF) | payer MEDICAID, SELFPAY ==
--- OUTSIDE RECORDS SUMMARY | 2025-10-09 09:36 | XMS_ITS | Clinical Summary ---
Author Organization [employer] Address [address] [place] [address] Care Team Providers Care Sales Professional Name Role Phone Unavailable Primary Care Provider Unavailabl e Social History Tobacco Use Types Packs/Day Years Used Date Smoking Tobacco: Never Assessed Sex and Gender Information Value Date Recorded Sex Assigned at Not on file Legal Sex Male 9:20 PM EDT Gender Identity Not on file Sexual Orientation Not on file Plan of Treatment Health Maintenance Due Date Last Done Comments CT Colonography 1964 Colonoscopy 1964 Colorectal Cancer Screening 1964 Depression Screening 1964 FIT DNA/Cologuard 1964 FIT 1964 FOBT 1965 Lipid Panel 1964 SDOH Screening 1964 Sigmoidoscopy 1964 Disability Screening 1964 Alcohol/Substance Use Screening 1976 Tobacco Screening 1976 Hepatitis C Screening 01/07/1982 COVID-19 Vaccine ( season) 2025 08/04/2022, 01/26/2022, 04/07/2021, Additional history exists Influenza Vaccine (#1) 2025 07/23/2024, 2014 Diabetes: Hemoglobin A1C 09/15/20262 025, 01/07/2025, 08/13/2024, Additional history exists DTaP/Tdap/Td Vaccines (3 - Td or Tdap) 11/30/2028 11/30/2018, 05/05/2016 RSV Patients and Patients Aged 60 years or older (1 - 1-dose 75+ series) 01/07/2039 Zoster Vaccines Completed 08/04/2022, 05/05/2022 Pneumococcal Vaccine: 50+ Years Completed 04/18/2024, 11/03/2022 HIV Screening Completed 09/15/2025, 11/30/2018 HIB Vaccines Aged Out No longer eligi ble based on patient's age to complete this topic HPV Vaccines Aged Out No longer eligi ble based on patient's age to complete this topic Hepatitis A Vaccines Aged Out No long er eligible based on patient's age to complete this topic Hepatitis B Vaccines Aged Out No long er eligible based on patient's age to complete this topic IPV Vaccines Aged Out No longer eligi ble based on patient's age to complete this topic Meningococcal B Vaccine Aged Out No l onger eligible based on patient's age to complete this topic Meningococcal Vaccine Aged Out No wesley ruiz eligible based on patient's age to complete this topic RSV under 20 months Aged Out No longe r eligible based on patient's age to complete this topic Rotavirus Vaccines Aged Out No longer eligible based on patient's age to complete this topic
[2025-10-09 10:31] LABS: Prostate Specific Antigen 5.06 ng/mL (<0.05-4.0)
== END 2025-10-09 08:54 | disposition home or self-care (01) ==
LOC: HO.LAB 08:53
PROVIDERS: PCP Physician Assistant Medical; Visit Provider Urology
DX: R97.20 Elevated prostate specific antigen [PSA] (principal)
CPT/HCPCS: 36415; 84153; 84403

== ENCOUNTER 2025-10-24 11:23 | Outpatient (AMB) | payer MEDICAID, SELFPAY ==
--- NOTE | 2025-10-24 11:36 | MHC.OFFVIS ---
Intake Visit Reasons: 6M PSA/Testosterone/PVR(set) Intake Note: Reason for Visit: PSA/Testosterone Urology Meds: Finasteride Blood Thinners: None Labs: PSA- 5.06 Total Testosterone: 378 (10/09/2025) Imaging: None Last PVR: 0ml Campaign Marketing Specialist Required: No Accompanied by: Self / Same As Patient Allergies No Known Allergies Allergy (Verified 10/24/25 11:41) HPI Comments Details: Bonilla is a pleasant Afro-Erick male (from [place]). He is a patient of . He is seen for the following urologic conditions - elevated PSA PSA has declined Bladder ultrasound 110 g prostate Based on PSA density high-grade risk of prostate cancer proximally 5% Is reporting difficulty with achieving orgasm Try stopping finasteride Elevated PSA No known family history of prostate issues Reports adequate voiding parameters regarding urge, emptying, strength of stream PSA - 09/29 PSA 8.3 13% free - PCPT 25%, 12/31 7.5 21%, 10/30 5 PFSH Medical History Nocturia Abnormal prostate specific antigen (PSA) Urination, excessive at night Hyperthyroidism Elevated PSA Type 2 diabetes mellitus without complications Controlled type 2 diabetes mellitus Review of Systems Const Denies chills and Denies fever(s) Card Reports no additional complaints and Denies syncope Resp Denies cough GI Denies abdominal pain and Denies heartburn Reports as per HPI and Denies change in libido Neuro Denies syncope Psych Denies change in libido Endo Denies change in libido Physical Exam Const General: cooperative, healthy appearing, comfortable and no acute distress Orientation/consciousness: patient oriented x3 HEENT Face and sinus: Yes normal facial exam Mouth: moist mucous membranes Neck Neck: Yes normal visual inspection, Yes full ROM and Yes trachea midline Chest Chest palpation & inspection: normal inspection of the chest Resp Effort & Inspection: normal respiratory effort, able to speak in complete sentences and no respiratory distress GI Inspection: Yes normal to inspection Back/Spine/Pelvis Cervical Spine: normal cervical lordosis Thoracic/Lumbar Spine: thoracic and lumbar spine normal to inspection Skin General skin exam: no rashes or lesions noted Neuro General: patient oriented x3, gait normal, tone normal and moves all extremities Extrem General: Yes normal to inspection and Yes capillary refill normal Assessment & Plan Assessment & Plan (1) Elevated PSA: Code(s): R97.20 - Elevated prostate specific antigen [PSA] Category: Medical Plan Six-month follow-up lab work Orders: Orders Prostate Specific Antigen 6 Months R97.20 - Elevated prostate specific antigen [PSA] Patient Instructions: This note is constructed using voice recognition software. While every effort has been made to ensure accuracy wind turbine performance engineer errors may have been included. Imaging studies, laboratory and physical exam results were discussed and reviewed in detail. No major barriers to patient understanding were identified. An opportunity to ask questions regarding the treatment plan was provided. All questions were answered. The patient expressed understanding and agreement with the above treatment plan. The patient is aware they should contact our office by phone for worsening of their current condition or the appearance of new urologic symptoms. Compliance is encouraged with any medications and followup testing that is ordered. It is a privilege to participate in the urologic care of your patient. If you have any questions or concerns regarding treatment for the above conditions, or other urologic issues, please do not hesitate to contact me. The office telephone contact is [phone]. Sincerely, Dr Cecil Donwey MD, [facility] - Urology Compassionate Specialist Care for the Genitourinary System Coding Level of Care Code Est Pt Level 3 (54424) Add On Problem Visit Only Diagnoses Elevated PSA R97.20
--- OUTSIDE RECORDS SUMMARY | 2025-10-24 13:27 | XMS_ITS | Clinical Summary ---
Author Organization [employer] Address [address] [facility] [address] [facility] [address] [place] [address] Care Team Providers Care Plastic Tool Maker Name Role Phone Unavailable Primary Care Provider [...]
== END 2025-10-24 12:23 | disposition home or self-care (01) ==
LOC: HO.HUSH 11:23
PROVIDERS: PCP Physician Assistant Medical; Visit Provider Urology
DX: R97.20 Elevated prostate specific antigen [PSA] (principal)
CPT/HCPCS: 99213

== ENCOUNTER → 2025-10-24 11:23 | Outpatient (BNVA) | payer MEDICAID, SELFPAY | PROVIDERS: PCP Physician Assistant Medical; Visit Provider Urology | DX: R97.20 Elevated prostate specific antigen [PSA] (principal) | CPT/HCPCS: 99212 ==